=== PATIENT | male | born 1985 | race Caucasian/White ===

== ENCOUNTER 2017-07-16 20:12 | Emergency (ER) | payer BC ==
[2017-07-16] MEDS ORDERED: diphenhydrAMINE 50 MG/ML SDV IVPUSH ONE (20:39)
[2017-07-16] MEDS ORDERED: Sodium Chloride 0.9% 1,000 ML IV ONE (20:39)
[2017-07-16] MEDS ORDERED: Sodium Chloride 0.9% 2.5 ML Syringe FLUSH PRN (20:39)
[2017-07-16] MEDS ORDERED: LORazepam 2 MG/ML MDV IVPUSH ONE (20:39)
[2017-07-16] MEDS ORDERED: Prochlorperazine 10 MG/2 ML SDV IM ONE (20:39)
[2017-07-16] MEDS ORDERED: Sodium Chloride 0.9% 10 ML Syringe FLUSH PRN (20:39)
[2017-07-16] MEDS ORDERED: Ketorolac 30 MG/ML SDV IVPUSH ONE (20:39)
--- NOTE | 2017-07-16 20:39 | EDM.PDOC ---
ED HPI GENERAL MEDICAL PROBLEM - General Chief Complaint: Headache Stated Complaint: SEVER HEADACHES/CHILLS/FEVER Time Seen by Provider: 07/16/17 20:33 Source of Information: Reports: Patient History Limitations: Reports: No Limitations - History of Present Illness INITIAL COMMENTS - FREE TEXT/NARRATIVE: HISTORY AND PHYSICAL: [] 32-year-old male presents with migraine headache that has been lasting for the last 4 days History of Present Illness: [] Patient refused that Thursday 4 days ago he had a fever and vomiting headache has come and gone for the last 4 days now is over the entire frontal and extending down posterior to the occipital area. 2 days ago was behind his left eye Review of Systems: As per history of present illness and below otherwise all systems reviewed and negative. Past medical history: As per history of present illness and as reviewed below otherwise noncontributory. Surgical history: As per history of present illness and as reviewed below otherwise noncontributory. Social history: No reported history of drug or alcohol abuse. Family history: As per history of present illness and as reviewed below otherwise noncontributory. Physical exam: Alert and oriented gentleman who actually has tears running down his face sits with his eyes closed light doesn't hurt his eyes. He does answer questions in full sentences is not short of breath HEENT: Atraumatic, normocehpalic, pupils reactive, negative for conjunctival pallor or scleral icterus, mucous membranes moist, throat clear, neck supple, nontender, trachea midline. Lungs: Clear to auscultation, breath sounds equal bilaterally, chest non tender. Heart: S1S2, regular, negative for clicks, rubs, or JVD. Abdomen: Soft, nondistended, nontender. Negative for masses or hepatossplenmegaly. Negative for costovertebral tenderness. Pelvis: Stable nontender. Genitourinary: Deferred. Rectal: Deferred Extremities: Atraumatic, negative for cords or calf pain. Neurovascular unremarkable. Neuro: Awake, alert, oriented. Cranial nerves II through XII unremarkable. Cerebellum unremarkable. Motor and sensory unremarkable throughout. Exam nonfocal. he has improved greatly with treatment given Diagnostics: [] Therapeutics: [Normal saline Benadryl and Compazine Ativan Toradol Impression: [Migraine headache] Plan: []Discharged to home Sleep clinic at home off work 24 hours Follow up with your primary care provider Definitive disposition and diagnosis as appropriate pending reevaluation and review of above. headache Pain Score (Numeric/FACES): 7 - Related Data Allergies Allergy/AdvReac Type Severity Reaction Status Date / Time No Known Allergies Allergy Verified 07/16/17 20:26 Home Meds: Home Meds Insulin Aspart [NovoLOG] 0 unit SUBCUT ASDIRECTED 07/16/17 [History] Insulin Glargine,Hum.Rec.Anlog [Lantus Solostar] 35 unit SQ BID 07/16/17 [ History] ED ROS GENERAL - Review of Systems Review Of Systems: ROS reveals no pertinent complaints other than HPI. - Physical Exam Exam: See Below (See dictation) Course - Vital Signs Last Recorded V/S: Last Vital Signs Temp 36.7 C 07/16/17 20:28 Pulse 100 07/16/17 20:28 Resp 20 07/16/17 20:28 BP 143/86 H 07/16/17 20:28 Pulse Ox 100 07/16/17 20:28 - Orders/Labs/Meds Orders: Active Orders 24 hr Category Date Time Status Sodium Chloride 0.9% [Normal Saline] 1,000 ml Med 07/16/17 20:39 Active IV STAT Sodium Chloride 0.9% [Saline Flush] Med 07/16/17 20:39 Active 10 ml FLUSH ASDIRECTED PRN Sodium Chloride 0.9% [Saline Flush] Med 07/16/17 20:39 Active 2.5 ml FLUSH ASDIRECTED PRN Saline Lock Insert [OM.PC] Stat Oth 07/16/17 20:39 Ordered Medication Orders Sodium Chloride (Normal Saline) 1,000 mls @ 999 mls/hr IV STAT ONE Stop: 07/16/17 21:39 Sodium Chloride (Saline Flush) 10 ml FLUSH ASDIRECTED PRN PRN Reason: Keep Vein Open Sodium Chloride (Saline Flush) 2.5 ml FLUSH ASDIRECTED PRN PRN Reason: Keep Vein Open Meds: Medications Generic Name Dose Route Start Last Admin Trade Name Freq PRN Reason Stop Dose Admin Sodium Chloride 1,000 mls @ 999 mls/hr 07/16/17 20:39 Normal Saline IV 07/16/17 21:39 STAT ONE Sodium Chloride 10 ml 07/16/17 20:39 Saline Flush FLUSH ASDIRECTED PRN Keep Vein Open Sodium Chloride 2.5 ml 07/16/17 20:39 Saline Flush FLUSH ASDIRECTED PRN Keep Vein Open Discontinued Medications Generic Name Dose Route Start Last Admin Trade Name Owen PRN Reason Stop Dose Admin Diphenhydramine HCl 25 mg 07/16/17 20:39 07/16/17 20:48 Benadryl IVPUSH 07/16/17 20:40 25 mg ONETIME ONE Administration Ketorolac Tromethamine 30 mg 07/16/17 20:39 07/16/17 20:46 Toradol IVPUSH 07/16/17 20:40 30 mg ONETIME ONE Administration Lorazepam 1 mg 07/16/17 20:39 07/16/17 20:47 Ativan IVPUSH 07/16/17 20:40 1 mg ONETIME ONE Administration Prochlorperazine Edisylate 10 mg 07/16/17 20:39 07/16/17 20:47 Compazine IM 07/16/17 20:40 10 mg ONETIME ONE Administration Departure - Departure Time of Disposition: 21:30 Disposition: Home, Self-Care 01 Condition: Good Clinical Impression: Migraine - Discharge Information Instructions: Recurrent Migraine Headache, [id number] Referrals: PCP,None [Primary Care Provider] - Forms: ED Department Discharge Additional Instructions: The following information is given to patients seen in the emergency department who are being discharged to home. This information is to outline your options for follow-up care. We provide all patients seen in our emergency department with a follow-up referral. The need for follow-up, as well as the timing and circumstances, are variable depending upon the specifics of your emergency department visit. If you don't have a primary care physician on staff, we will provide you with a referral. We always advise you to contact your personal physician following an emergency department visit to inform them of the circumstance of the visit and for follow-up with them and/or the need for any referrals to a consulting specialist. The emergency department will also refer you to a specialist when appropriate. This referral assures that you have the opportunity for followup care with a specialist. All of these measure are taken in an effort to provide you with optimal care, which includes your followup. Under all circumstances we always encourage you to contact your private physician who remains a resource for coordinating your care. When calling for followup care, please make the office aware that this follow-up is from your recent emergency room visit. If for any reason you are refused follow-up, please contact the [facility] emergency department at and asked to speak to the emergency department charge nurse. Follow-up with your primary care provider Off work 24 hours go home and sleep - My Orders Last 24 Hours: My Active Orders 07/16/17 20:39 Sodium Chloride 0.9% [Normal Saline] 1,000 ml IV STAT Sodium Chloride 0.9% [Saline Flush] 10 ml FLUSH ASDIRECTED PRN Sodium Chloride 0.9% [Saline Flush] 2.5 ml FLUSH ASDIRECTED PRN Saline Lock Insert [OM.PC] Stat - Assessment/Plan Last 24 Hours: My Active Orders 07/16/17 20:39 Sodium Chloride 0.9% [Normal Saline] 1,000 ml IV STAT Sodium Chloride 0.9% [Saline Flush] 10 ml FLUSH ASDIRECTED PRN Sodium Chloride 0.9% [Saline Flush] 2.5 ml FLUSH ASDIRECTED PRN Saline Lock Insert [OM.PC] Stat
[2017-07-16 22:13] VITALS: BP 110/65
== END 2017-07-16 22:15 | disposition home or self-care (01) ==
LOC: MW.ED 20:12
DX: G43.909 Migraine, unspecified, not intractable, without status migrainosus (principal)
CPT/HCPCS: 96361; 96372; 96374; 96375; 99283; J0780; J1200; J1885; J2060; J7040; 99282

== ENCOUNTER 2019-11-30 06:56 | Day surgery (SDC) | payer BC ==
[~2019-11-30 06:56] MED LIST: Lactated Ringers 1,000 ML IV SCH
[2019-11-30] MEDS ORDERED: fentaNYL 100 MCG/2 ML SDV ONE (07:23)
[2019-11-30] MEDS ORDERED: Lidocaine 2% 5 ML SDV ONE (07:23)
[2019-11-30] MEDS ORDERED: Midazolam 1 MG/ML 2 ML SDV ONE (07:23)
[2019-11-30] MEDS ORDERED: Propofol 200 MG/20 ML SDV ONE (07:23)
--- NOTE | 2019-11-30 08:58 | PCM.PREANE ---
Preanesthetic Assessment - Anesthesia/Transfusion/Family Hx Anesthesia History: Prior Anesthesia Without Reaction Other Type of Anesthesia Reaction Comment: "it takes more local anesthesia for me than normal people" Family History of Anesthesia Reaction: No Transfusion History: No Prior Transfusion(s) - Review of Systems General: No Symptoms Pulmonary: No Symptoms Cardiovascular: No Symptoms Neurological: No Symptoms Other: Reports: None - Physical Assessment NPO Status Date: 11/29/19 NPO Status Time: 04:30 Vital Signs: Last Vital Signs Temp 97.5 F 11/30/19 07:22 Pulse 77 11/30/19 07:22 Resp 18 11/30/19 07:22 BP 105/81 11/30/19 07:22 Pulse Ox 97 11/30/19 07:22 Height: 5 ft 7 in Weight: 83.461 kg ASA Class: 3 Airway Class: Mallampati = 2 Dentition: Reports: Normal Dentition ROM/Head Extension: Full Lungs: Clear to Auscultation, Normal Respiratory Effort Cardiovascular: Regular Rate, Regular Rhythm - Allergies Allergies/Adverse Reactions: Allergies Allergy/AdvReac Type Severity Reaction Status Date / Time No Known Allergies Allergy Verified 11/24/19 10:31 - Blood Blood Available: No - Anesthesia Plan Pre-Op Medication Ordered: None - Acknowledgements Pt an Appropriate Candidate for the Planned Anesthesia: No Alternatives and Risks of Anesthesia Discussed w Pt/Guardian: Yes Pt/Guardian Understands and Agrees with Anesthesia Plan: Yes Additional Comments: PMH: dm type 1 x 10 years, on insulin pump, now turned off, arrival glucose=79, glucose wga=848, hld, htn, anx, bid cannabis use PLAN: tiva - note cannabis use will interfere with the ability of propofol to induce and/or maintain unconsciousness, may need higher dose, may need suplimentation with versed or ketamine PreAnesthesia Questionnaire HEENT History: Reports: Other (See Below) Other HEENT History: wears glasses, has dental implants Cardiovascular History: Reports: High Cholesterol Other Cardiovascular History: tales lisinopril to protect kidneys duet to diabetes Respiratory History: Reports: None Gastrointestinal History: Reports: Colon Polyp, GERD, Hepatitis Other Gastrointestinal History: hepatitis in the past-last test was negative Genitourinary History: Reports: None Musculoskeletal History: Reports: Back Pain, Chronic, Fracture Other Musculoskeletal History: states has had multiple fractures Neurological History: Reports: Concussion, Headaches, Chronic, Migraines, Neuropathy, Diabetic Psychiatric History: Reports: Anxiety, Depression Endocrine/Metabolic History: Reports: Diabetes, Type I Hematologic History: Reports: None Immunologic History: Reports: None Oncologic (Cancer) History: Reports: None Dermatologic History: Reports: None - Infectious Disease History Infectious Disease History: Reports: Chicken Pox, Hepatitis B, Shingles - Past Surgical History Head Surgeries/Procedures: Reports: None HEENT Surgical History: Reports: None Cardiovascular Surgical History: Reports: None Respiratory Surgical History: Reports: None GI Surgical History: Reports: Colonoscopy Male Surgical History: Reports: None Endocrine Surgical History: Reports: None Neurological Surgical History: Reports: None Musculoskeletal Surgical History: Reports: None Oncologic Surgical History: Reports: None Dermatological Surgical History: Reports: None - SUBSTANCE USE Smoking Status *Q: Never Smoker Recreational Drug Type: Reports: Marijuana/Hashish - HOME MEDS Home Medications: Home Meds ALPRAZolam [Alprazolam ER] 0.5 mg PO BID PRN 11/24/19 [History] Cannabidiol (Cbd) Extract [Cannabis (Medical)] 1 dose PO BID 11/24/19 [History] Cimetidine [Acid [facility]] 600 mg PO ASDIRECTED PRN 11/24/19 [History] Glucagon,Human Recombinant [Glucagon Emergency Kit] 1 injection SUBCUT ASDIRECTED PRN 11/24/19 [History] Insulin Aspart [NovoLOG] 1 injection SUBCUT ASDIRECTED 11/24/19 [History] atorvaSTATin Calcium [Atorvastatin Calcium] 10 mg PO DAILY 11/24/19 [History] lisinopriL [Lisinopril] 5 mg PO DAILY 11/24/19 [History] - CURRENT (IN HOUSE) MEDS Current Meds: Current Medications Lactated Ringer's (Ringers, Lactated) 1,000 mls @ 125 mls/hr IV ASDIRECTED MARILYN Last Admin: 11/30/19 07:39 Dose: 125 mls/hr Discontinued Medications Fentanyl (Sublimaze) Confirm Administered Dose 100 mcg .ROUTE .STK-MED ONE Stop: 11/30/19 07:24 Lidocaine (Xylocaine-Mpf 2%) Confirm Administered Dose 5 ml .ROUTE .STK-MED ONE Stop: 11/30/19 07:24 Midazolam HCl (Versed 1 Mg/Ml) Confirm Administered Dose 2 mg .ROUTE .STK-MED ONE Stop: 11/30/19 07:24 Propofol (Diprivan 20 Ml) Confirm Administered Dose 400 mg .ROUTE .STK-MED ONE Stop: 11/30/19 07:24
--- NOTE | 2019-11-30 09:50 | PCM.OPNOTE ---
- General Post-Op/Procedure Note Date of Surgery/Procedure: 11/30/19 Operative Procedure(s): egd w bx. colonoscopy w bx Findings: see [id number] Pre Op Diagnosis: change in bowel habits. gerd Post-Op Diagnosis: Same Anesthesia Technique: Moderate Sedation Primary Surgeon: Tello Fragoso Pathology: egd bx colon bx at 35 cm when enter for hyperemic Complications: None Condition: Good
[2019-11-30 10:06] VITALS: BP 105/61
[2019-11-30 10:16] VITALS: PULSE 76
--- NOTE | 2019-11-30 10:41 | PCM.POSTAN ---
POST ANESTHESIA ASSESSMENT - MENTAL STATUS Mental Status: Alert, Oriented - VITAL SIGNS Vital Signs: Last Vital Signs Temp 97.0 F 11/30/19 10:05 Pulse 76 11/30/19 10:05 Resp 16 11/30/19 10:05 BP 105/61 11/30/19 10:05 Pulse Ox 95 11/30/19 10:05 - RESPIRATORY Respiratory Status: Respiratory Rate WNL, Airway Patent, O2 Saturation Stable - CARDIOVASCULAR CV Status: Pulse Rate WNL, Blood Pressure Stable - GASTROINTESTINAL GI Status: No Symptoms - POST OP HYDRATION Hydration Status: Adequate & Stable
--- NOTE | 2019-11-30 10:41 | PCM48HPAN ---
Post Anesthesia Note - EVALUATION WITHIN 48HRS OF ANESTHETIC Vital Signs in Normal Range: Yes Patient Participated in Evaluation: Yes Respiratory Function Stable: Yes Airway Patent: Yes Cardiovascular Function Stable: Yes Hydration Status Stable: Yes Pain Control Satisfactory: Yes Nausea and Vomiting Control Satisfactory: Yes Mental Status Recovered: Yes Vital Signs: Last Vital Signs Temp 97.0 F 11/30/19 10:05 Pulse 76 11/30/19 10:05 Resp 16 11/30/19 10:05 BP 105/61 11/30/19 10:05 Pulse Ox 95 11/30/19 10:05
--- NOTE | 2019-11-30 10:54 | OR ---
SURGEON: Tello Fragoso MD DATE OF PROCEDURE: 11/30/2019 PREOPERATIVE DIAGNOSES: Bright red blood per rectum, change in bowel habit, and gastroesophageal reflux disease. POSTOPERATIVE DIAGNOSES: Esophagogastroduodenoscopy diagnosis is gastroesophageal reflux disease and colonoscopy diagnosis is internal hemorrhoids. PROCEDURES PERFORMED: Esophagogastroduodenoscopy with biopsy and colonoscopy with biopsy. DESCRIPTION OF PROCEDURE: EGD: The patient was taken to the endoscopy room, and with the [employer], Diprivan was administered. A well-lubricated EGD scope was gently inserted through the oropharynx, down the esophagus, passing through the gastroesophageal junction, into the stomach. The mucosa was examined upon the passage. Any etiology will be noted. Once in the stomach, we continued to advance to the distal antrum, passed through the pylorus into the second portion of the duodenum. Again, the mucosa was examined for any abnormality and etiology. The scope was then retrieved back to the stomach and then retroflexed to look at the fundus of the stomach. If a biopsy was indicated, we will biopsy the antrum, body, and gastroesophageal junction. The air will be sucked out while the scope is retrieved to reduce the patient's discomfort. The patient tolerated the procedure well. There were no intraoperative complications. Dr. Fragoso was present through the whole procedure. Prior to surgery, a time-out had been called, the patient identified, procedure identified and antibiotic administered. The patient was taken to the endoscopy room. A time out was called, patient identified, and procedure identified. Diprivan was then administrated. Patient went from awake to sleep, hearing doctor talking or door closing is normal. Perineum inspection and digital examination were then performed. A well- lubricated colonoscope was gently inserted through the rectum, advanced past the rectosigmoid junction, the descending colon, splenic flexure, transverse colon, hepatic flexure, ascending colon, arrived to the cecum. Cecum was identified as dictated in the finding. Then the scope was carefully withdrawn while attention was paid to the mucosal surface for any abnormality. Air will be sucked out during the scope withdrawal. At the rectum, retroflexed to examine any rectal diseases, fistula or hemorrhoids. During mucosal examination, abnormality or polyp was noted; picture taken and biopsy performed. Patient tolerated procedure well. There were no intraoperative complications, and Dr. Fragoso was present throughout the whole procedure. FINDINGS: EGD findings: 1. The patient is easily sedated with [employer] and Diprivan, the patient is soundly snoring. 2. Oropharynx and proximal esophagus are free of disease, stricture, inflammation, or varicosity. Distal esophagus at GE junction at 40 shows mild salmon-colored change, suggests a mild acid reflux. Stomach rugae are normal in appearance. Antrum is normal in appearance. Duodenum is grossly normal. Retroflexed look at the fundus of stomach, there is no hiatal hernia. Biopsy done at antrum, body, GE junction at 40, and sucked out the gas while scope pulling out. During the whole study, there is no bile, food particle, ulcer, or blood observed. There is a lot of water in the stomach. Colonoscopy findings: 1. The patient is easily sedated with [employer] and Diprivan, the patient is soundly snoring. 2. Bowel prep is average to [id number] and very little liquid stool and no semi-formed stool. 3. Colon is rather straightforward. Cecum indicated by ileocecal fold, one-to- one indentation, and appendiceal orifice. Light emittance is not observed and ScopeGuide was pointing south. Mucosa was then examined with some irrigation. The patient does not have diverticulosis, polyp, mass, growth, inflammation, stricture, ulceration, AV malformation. The patient is a little bit hyperemic at distance 35 cm when the scope go in, biopsy was done. The patient has mild internal hemorrhoids, no external hemorrhoids. The patient would benefit from repeat colonoscopy in 10 years from today or if clinically indicated otherwise. BLAISE / JOSSELIN /[id number]
== END 2019-11-30 10:40 | disposition home or self-care (01) ==
LOC: MW.SDS 06:56
PROVIDERS: ATTEND Surgery
DX: K62.5 Hemorrhage of anus and rectum (principal); R19.4 Change in bowel habit; K64.8 Other hemorrhoids; K21.0 Gastro-esophageal reflux disease with esophagitis; E10.65 Type 1 diabetes mellitus with hyperglycemia; E78.5 Hyperlipidemia, unspecified; Z91.19 Patient's noncompliance with other medical treatment and regimen; Z79.4 Long term (current) use of insulin; Z79.899 Other long term (current) drug therapy
CPT/HCPCS: 43239; 45380; 82962; 88305; 88312; J2001; J2250; J2704; J3010; J7120

== ENCOUNTER 2020-04-17 22:09 | Inpatient (IN) | payer BC, OTHER ==
[2020-04-17] MEDS ORDERED: Sodium Chloride 0.9% 1,000 ML IV SCH ×2 (22:45→23:30)
[2020-04-17] MEDS ORDERED: Ondansetron 4 MG/2 ML SDV IVPUSH ONE (22:50)
[2020-04-17 22:53] LABS: CARBON DIOXIDE,CO2 20.6 mmol/L (21.0-32.0); POTASSIUM,K 3.3 mmol/L (3.5-5.1)
[2020-04-17] MEDS ORDERED: Metoclopramide 10 MG/2 ML SDV ONE (22:55)
[2020-04-17] MEDS ORDERED: Metoclopramide 10 MG/2 ML SDV IVPUSH ONE (22:57)
--- NOTE | 2020-04-17 23:23 | EDM.PDOC ---
ED HPI GENERAL MEDICAL PROBLEM - General Chief Complaint: Gastrointestinal Problem Stated Complaint: DIABETIC KETOACIDOSIS Time Seen by Provider: 04/17/20 22:37 - History of Present Illness INITIAL COMMENTS - FREE TEXT/NARRATIVE: History of present illness: 34-year-old male presenting with nausea and vomiting and history of diabetes. Patient reports symptoms started today. Denies abdominal pain. Did have some mild diarrhea. Possible some mild cough but no fevers or body aches. Has no dysuria. He reports that his glucose at home was in the 600s and he has not been eating much at all for the last 2 days. He had been attempting to self treat at home by giving himself insulin doses, however his glucose had only improved from the 600s to the 300s. He has a prior history of DKA. Review of systems: As per history of present illness and below otherwise all systems reviewed and negative. Past medical history: As per history of present illness and as reviewed below otherwise noncontributory. Diabetes type 1 Surgical history: As per history of present illness and as reviewed below otherwise noncontributory. Social history: No reported history of drug or alcohol abuse. Family history: As per history of present illness and as reviewed below otherwise noncontributory. Physical exam: GEN: Mild distress, actively vomiting, otherwise well appearing HEENT: Atraumatic, normocephalic, mucous membranes dry Neck: supple, nontender, trachea midline. Lungs: No respiratory distress. Heart: RRR Abdomen: Soft, nondistended, nontender. Back: nontender Extremities: Atraumatic. Neurovascularly intact. Neuro: Awake, alert, oriented. Neuro Exam nonfocal. Skin: warm, dry, no lesions Diagnostics: [] Therapeutics: [] MDM: Impression: [] Plan: [] Definitive disposition and diagnosis as appropriate pending reevaluation and review of above. Abdomen Pain Score (Numeric/FACES): 3 - Related Data Allergies Allergy/AdvReac Type Severity Reaction Status Date / Time No Known Allergies Allergy Verified 04/17/20 22:31 Home Meds: Home Meds ALPRAZolam [Alprazolam ER] 0.5 mg PO BID PRN 11/24/19 [History] Cannabidiol (Cbd) Extract [Cannabis (Medical)] 1 dose PO BID 11/24/19 [History] Cimetidine [Acid Vocational Examiner] 600 mg PO ASDIRECTED PRN 11/24/19 [History] Glucagon,Human Recombinant [Glucagon Emergency Kit] 1 injection SUBCUT ASDIRECTED PRN 11/24/19 [History] Insulin Aspart [NovoLOG] 1 injection SUBCUT ASDIRECTED 11/24/19 [History] atorvaSTATin Calcium [Atorvastatin Calcium] 10 mg PO DAILY 11/24/19 [History] lisinopriL [Lisinopril] 5 mg PO DAILY 11/24/19 [History] Past Medical History HEENT History: Reports: Other (See Below) Other HEENT History: wears glasses, has dental implants Cardiovascular History: Reports: High Cholesterol Other Cardiovascular History: tales lisinopril to protect kidneys duet to diabetes Respiratory History: Reports: None Gastrointestinal History: Reports: Colon Polyp, GERD, Hepatitis Other Gastrointestinal History: hepatitis in the past-last test was negative Genitourinary History: Reports: None Musculoskeletal History: Reports: Back Pain, Chronic, Fracture Other Musculoskeletal History: states has had multiple fractures Neurological History: Reports: Concussion, Headaches, Chronic, Migraines, Neuropathy, Diabetic Psychiatric History: Reports: Anxiety, Depression Endocrine/Metabolic History: Reports: Diabetes, Type I Insulin Pump Model and Promotions Associate: not use for 2days Hematologic History: Reports: None Immunologic History: Reports: None Oncologic (Cancer) History: Reports: None Dermatologic History: Reports: None - Infectious Disease History Infectious Disease History: Reports: None - Past Surgical History Head Surgeries/Procedures: Reports: None HEENT Surgical History: Reports: None Cardiovascular Surgical History: Reports: None Respiratory Surgical History: Reports: None GI Surgical History: Reports: Colonoscopy Male Surgical History: Reports: None Endocrine Surgical History: Reports: None Neurological Surgical History: Reports: None Musculoskeletal Surgical History: Reports: None Oncologic Surgical History: Reports: None Dermatological Surgical History: Reports: None Social & Family History - Family History Family Medical History: Noncontributory - Tobacco Use Smoking Status *Q: Never Smoker - Caffeine Use Caffeine Use: Reports: None - Recreational Drug Use Recreational Drug Use: No ED ROS GENERAL - Review of Systems Review Of Systems: See Below (See dictation) ED EXAM, GI/ABD - Physical Exam Exam: See Below (See dictation) Course - Vital Signs Text/Narrative:: Patient with history of diabetes including diabetic ketoacidosis in the past. Nausea vomiting and diarrhea. No abdominal pain or tenderness. Labs with elevated white blood cell counts, however no other signs of infection including chest x-ray negative, UA negative, and eventually CT scan without any acute intra-abdominal findings or infection. Suspect white count elevation may be due to recurrent episodes of vomiting or possibly gastroenteritis. Creatinine also acutely elevated today. Patient given 2 L of normal saline for dehydration and also hypotensive. Anion gap initially 20, improved to 15 on repeat. Glucose initially in the 120s, however did trend upward on repeat draw. Therefore patient was started on insulin drip in association with D5 and potassium as his potassium was low. Repeat glucose in the 300s after being on insulin drip. Continue to have nausea and vomiting. Initially given Reglan, then given Zofran x2 doses. However vomiting/dry heaves continued. Given dose of Haldol with some improvement in his symptoms. We will admit to ICU as patient is on insulin drip. Last Recorded V/S: Last Vital Signs Temp 99.2 F 04/18/20 05:00 Pulse 86 04/18/20 04:00 Resp 18 04/18/20 05:00 BP 121/67 04/18/20 05:00 Pulse Ox 99 04/18/20 05:00 - Orders/Labs/Meds Orders: Active Orders 24 hr Category Date Time Status Dextrose 5%-0.9% NaCl with KCl [D5 NS with 20 mEq KCl] Med 04/18/20 01:15 Active 1,000 ml IV ASDIRECTED Insulin Regular, Human [NovoLIN R] 100 unit Med 04/18/20 02:45 Active Sodium Chloride 0.9% [Normal Saline] 99 ml IV TITRATE Sodium Chloride 0.9% [Normal Saline] 1,000 ml Med 04/17/20 22:45 Active IV ASDIRECTED Sodium Chloride 0.9% [Normal Saline] 1,000 ml Med 04/17/20 23:30 Active IV ASDIRECTED Medication Orders Sodium Chloride (Normal Saline) 1,000 mls @ 999 mls/hr IV ASDIRECTED MARILYN Last Admin: 04/17/20 22:58 Dose: 999 mls/hr Documented by: JESSICA Sodium Chloride (Normal Saline) 1,000 mls @ 999 mls/hr IV ASDIRECTED MARILYN Last Admin: 04/18/20 00:17 Dose: 999 mls/hr Documented by: JESSICA Potassium Chloride/Dextrose/Sod Cl (D5 Ns With 20 Meq Kcl) 1,000 mls @ 150 mls/hr IV ASDIRECTED MARILYN Last Admin: 04/18/20 01:38 Dose: 150 mls/hr Documented by: JESSICA Insulin Human Regular 100 unit (/ Sodium Chloride) 100 mls @ 8 mls/hr IV TITRATE MARILYN; Protocol Last Titration: 04/18/20 05:06 Dose: 6 unit/hr, 6 mls/hr Documented by: SIMONE Cosigned by: STANLEY Admin: 04/18/20 03:10 Dose: 8 unit/hr, 8 mls/hr Documented by: JESSICA Cosigned by: [facility] Labs: Laboratory Tests 04/17/20 04/17/20 04/17/20 Range/Units 22:25 22:35 22:35 WBC 22.08 H (4.0-11.0) K/uL RBC 5.94 H (4.50-5.90) M/uL Hgb 17.8 H (13.0-17.0) g/dL Hct 50.2 H (38.0-50.0) % MCV 84.5 (80.0-98.0) fL MCH 30.0 (27.0-32.0) pg MCHC 35.5 (31.0-37.0) g/dL RDW Std Deviation 39.0 (28.0-62.0) fl RDW Coeff of Bryce 13 (11.0-15.0) % Plt Count 336 (150-400) K/uL MPV 10.30 (7.40-12.00) fL Neut % (Auto) 90.2 H (48.0-80.0) % Lymph % (Auto) 6.0 L (16.0-40.0) % Briscoe % (Auto) 3.8 (0.0-15.0) % Eos % (Auto) 0.0 (0.0-7.0) % Baso % (Auto) 0.0 (0.0-1.5) % Neut # (Auto) 19.9 H (1.4-5.7) K/uL Lymph # (Auto) 1.3 (0.6-2.4) K/uL Briscoe # (Auto) 0.8 (0.0-0.8) K/uL Eos # (Auto) 0.0 (0.0-0.7) K/uL Baso # (Auto) 0.0 (0.0-0.1) K/uL Nucleated RBC % 0.0 /100WBC Nucleated RBCs # 0 K/uL VBG pH 7.49 H (7.31-7.41) VBG pCO2 26 L (35-45) mmHG VBG pO2 32 (30-40) mmHG VBG HCO3 20 L (22-30) mEq/L VBG Total CO2 17 L (41-51) mmol/L VBG Base Excess -1.6 (-3.0-3.0) Sodium (136-148) mmol/L Potassium (3.5-5.1) mmol/L Chloride (98-107) mmol/L Carbon Dioxide (21.0-32.0) mmol/L BUN (7.0-18.0) mg/dL Creatinine (0.8-1.3) mg/dL Est Cr Clr Drug Dosing mL/min Estimated GFR (MDRD) ml/min Glucose (74-106) mg/dL POC Glucose 115 H (60-110) mg/dL Calcium (8.5-10.1) mg/dL Total Bilirubin (0.2-1.0) mg/dL AST (15-37) IU/L ALT (14-63) IU/L Alkaline Phosphatase (46-116) U/L Total Protein (6.4-8.2) g/dL Albumin (3.4-5.0) g/dL Globulin (2.6-4.0) g/dL Albumin/Globulin Ratio (0.9-1.6) Urine Color Urine Appearance Urine pH (5.0-8.0) Ur Specific Roby (1.001-1.035) Urine Protein (NEGATIVE) mg/dL Urine Glucose (UA) (NEGATIVE) mg/dL Urine Ketones (NEGATIVE) mg/dL Urine Occult Blood (NEGATIVE) Urine Nitrite (NEGATIVE) Urine Bilirubin (NEGATIVE) Urine Urobilinogen (<2.0) EU/dL Ur Leukocyte Esterase (NEGATIVE) Ketones (NEG) 04/17/20 04/17/20 04/18/20 Range/Units 22:35 22:35 00:00 WBC (4.0-11.0) K/uL RBC (4.50-5.90) M/uL Hgb (13.0-17.0) g/dL Hct (38.0-50.0) % MCV (80.0-98.0) fL MCH (27.0-32.0) pg MCHC (31.0-37.0) g/dL RDW Std Deviation (28.0-62.0) fl RDW Coeff of Bryce (11.0-15.0) % Plt Count (150-400) K/uL MPV (7.40-12.00) fL Neut % (Auto) (48.0-80.0) % Lymph % (Auto) (16.0-40.0) % Briscoe % (Auto) (0.0-15.0) % Eos % (Auto) (0.0-7.0) % Baso % (Auto) (0.0-1.5) % Neut # (Auto) (1.4-5.7) K/uL Lymph # (Auto) (0.6-2.4) K/uL Briscoe # (Auto) (0.0-0.8) K/uL Eos # (Auto) (0.0-0.7) K/uL Baso # (Auto) (0.0-0.1) K/uL Nucleated RBC % /100WBC Nucleated RBCs # K/uL VBG pH (7.31-7.41) VBG pCO2 (35-45) mmHG VBG pO2 (30-40) mmHG VBG HCO3 (22-30) mEq/L VBG Total CO2 (41-51) mmol/L VBG Base Excess (-3.0-3.0) Sodium 144 (136-148) mmol/L Potassium 3.3 L (3.5-5.1) mmol/L Chloride 103 (98-107) mmol/L Carbon Dioxide 20.6 L (21.0-32.0) mmol/L BUN 28 H (7.0-18.0) mg/dL Creatinine 2.0 H (0.8-1.3) mg/dL Est Cr Clr Drug Dosing 49.12 mL/min Estimated GFR (MDRD) 38.7 ml/min Glucose 127 H (74-106) mg/dL POC Glucose (60-110) mg/dL Calcium 10.4 H (8.5-10.1) mg/dL Total Bilirubin 1.2 H (0.2-1.0) mg/dL AST 27 (15-37) IU/L ALT 42 (14-63) IU/L Alkaline Phosphatase 104 (46-116) U/L Total Protein 9.3 H (6.4-8.2) g/dL Albumin 5.3 H (3.4-5.0) g/dL Globulin 4.0 (2.6-4.0) g/dL Albumin/Globulin Ratio 1.3 (0.9-1.6) Urine Color YELLOW Urine Appearance CLEAR Urine pH 6.0 (5.0-8.0) Ur Specific Roby 1.025 (1.001-1.035) Urine Protein NEGATIVE (NEGATIVE) mg/dL Urine Glucose (UA) 500 H (NEGATIVE) mg/dL Urine Ketones >=80 (NEGATIVE) mg/dL Urine Occult Blood NEGATIVE (NEGATIVE) Urine Nitrite NEGATIVE (NEGATIVE) Urine Bilirubin NEGATIVE (NEGATIVE) Urine Urobilinogen 0.2 (<2.0) EU/dL Ur Leukocyte Esterase NEGATIVE (NEGATIVE) Ketones NEGATIVE (NEG) 04/18/20 04/18/20 Range/Units 01:38 02:56 WBC (4.0-11.0) K/uL RBC (4.50-5.90) M/uL Hgb (13.0-17.0) g/dL Hct (38.0-50.0) % MCV (80.0-98.0) fL MCH (27.0-32.0) pg MCHC (31.0-37.0) g/dL RDW Std Deviation (28.0-62.0) fl RDW Coeff of Bryce (11.0-15.0) % Plt Count (150-400) K/uL MPV (7.40-12.00) fL Neut % (Auto) (48.0-80.0) % Lymph % (Auto) (16.0-40.0) % Briscoe % (Auto) (0.0-15.0) % Eos % (Auto) (0.0-7.0) % Baso % (Auto) (0.0-1.5) % Neut # (Auto) (1.4-5.7) K/uL Lymph # (Auto) (0.6-2.4) K/uL Briscoe # (Auto) (0.0-0.8) K/uL Eos # (Auto) (0.0-0.7) K/uL Baso # (Auto) (0.0-0.1) K/uL Nucleated RBC % /100WBC Nucleated RBCs # K/uL VBG pH (7.31-7.41) VBG pCO2 (35-45) mmHG VBG pO2 (30-40) mmHG VBG HCO3 (22-30) mEq/L VBG Total CO2 (41-51) mmol/L VBG Base Excess (-3.0-3.0) Sodium 144 (136-148) mmol/L Potassium 3.9 (3.5-5.1) mmol/L Chloride 107 (98-107) mmol/L Carbon Dioxide 21.7 (21.0-32.0) mmol/L BUN 29 H (7.0-18.0) mg/dL Creatinine 1.6 H (0.8-1.3) mg/dL Est Cr Clr Drug Dosing 61.39 mL/min Estimated GFR (MDRD) 50.0 ml/min Glucose 224 H (74-106) mg/dL POC Glucose 420 H (60-110) mg/dL Calcium 8.6 (8.5-10.1) mg/dL Total Bilirubin (0.2-1.0) mg/dL AST (15-37) IU/L ALT (14-63) IU/L Alkaline Phosphatase (46-116) U/L Total Protein (6.4-8.2) g/dL Albumin (3.4-5.0) g/dL Globulin (2.6-4.0) g/dL Albumin/Globulin Ratio (0.9-1.6) Urine Color Urine Appearance Urine pH (5.0-8.0) Ur Specific Roby (1.001-1.035) Urine Protein (NEGATIVE) mg/dL Urine Glucose (UA) (NEGATIVE) mg/dL Urine Ketones (NEGATIVE) mg/dL Urine Occult Blood (NEGATIVE) Urine Nitrite (NEGATIVE) Urine Bilirubin (NEGATIVE) Urine Urobilinogen (<2.0) EU/dL Ur Leukocyte Esterase (NEGATIVE) Ketones (NEG) Meds: Medications Generic Name Dose Route Start Last Admin Trade Name Freq PRN Reason Stop Dose Admin Sodium Chloride 1,000 mls @ 999 mls/hr 04/17/20 22:45 04/17/20 22:58 Normal Saline IV 999 mls/hr ASDIRECTED MARILYN Administration Sodium Chloride 1,000 mls @ 999 mls/hr 04/17/20 23:30 04/18/20 00:17 Normal Saline IV 999 mls/hr ASDIRECTED MARILYN Administration Potassium Chloride/Dextrose/Sod Cl 1,000 mls @ 150 mls/hr 04/18/20 01:15 04/18/20 01:38 D5 Ns With 20 Meq Kcl IV 150 mls/hr ASDIRECTED MARILYN Administration Insulin Human Regular 100 unit 100 mls @ 8 mls/hr 04/18/20 02:45 04/18/20 05:06 / Sodium Chloride IV 6 unit/hr TITRATE MARILYN 6 mls/hr Titration Protocol 8 UNIT/HR Discontinued Medications Generic Name Dose Route Start Last Admin Trade Name Freq PRN Reason Stop Dose Admin Haloperidol Lactate 5 mg 04/18/20 04:41 04/18/20 04:42 Haldol IM 04/18/20 04:42 5 mg ONETIME ONE Administration Haloperidol Lactate Confirm 04/18/20 04:40 04/18/20 05:07 Haldol Administered 04/18/20 04:41 Not Given Dose 5 mg .ROUTE .STK-MED ONE Metoclopramide HCl 10 mg 04/17/20 22:57 04/17/20 22:58 Reglan IVPUSH 04/17/20 22:58 10 mg ONETIME ONE Administration Metoclopramide HCl Confirm 04/17/20 22:55 04/17/20 22:59 Reglan Administered 04/17/20 22:56 Not Given Dose 10 mg .ROUTE .STK-MED ONE Ondansetron HCl 4 mg 04/17/20 22:50 04/17/20 23:00 Zofran IVPUSH 04/17/20 22:51 Not Given ONETIME ONE Ondansetron HCl 4 mg 04/18/20 01:31 04/18/20 01:37 Zofran IVPUSH 04/18/20 01:32 4 mg ONETIME ONE Administration Ondansetron HCl 4 mg 04/18/20 02:11 04/18/20 02:25 Zofran IVPUSH 04/18/20 02:12 4 mg ONETIME ONE Administration Potassium Chloride 40 meq 04/18/20 01:10 04/18/20 01:21 Potassium Chloride PO 04/18/20 01:11 40 meq ONETIME ONE Administration - Re-Assessments/Exams Free Text/Narrative Re-Assessment/Exam: 04/17/20 23:23 On reassessment the patient is feeling better. He is sleeping comfortably. Upon awakening he reports he has no pain in his feeling improved, no further nausea or vomiting. Discussed labs including elevated white count and recommendation for further infectious work-up including chest x-ray and UA. Patient agrees with this plan. 04/18/20 01:30 Patient not feeling well. Vomiting after having received the p.o. potassium. Zofran ordered. 04/18/20 02:12 Patient reassessed. He has received the Zofran and still nauseated/vomiting and heaving. Will order additional Zofran. Denies any abdominal pain or change in symptoms other than nausea and vomiting. 04/18/20 04:06 Patient vomiting again after he had been previously feeling better and wanting to attempt p.o. challenge after CT scan resulted as negative for any acute intra-abdominal process. Dr. Boone also called back to admit the patient. Request to admit to ICU under inpatient status. Departure - Departure Time of Disposition: 03:45 Disposition: Admitted As Inpatient 67 Clinical Impression: Acute renal insufficiency, Dehydration, Nausea vomiting and diarrhea DKA (diabetic ketoacidoses) Qualifiers: Diabetes mellitus type: type 1 Diabetes mellitus complication detail: without coma Qualified Code(s): E10.10 - Type 1 diabetes mellitus with ketoacidosis without coma - Discharge Information Critical Care Note - Critical Care Note Total Time (mins): 35 Comments: Frequent and multiple re-evaluations, multiple doses of medications and insulin drip for DKA Sepsis Event Note (ED) - Evaluation Sepsis Screening Result: No Definite Risk - Focused Exam Vital Signs: Vital Signs Temp Pulse Resp BP Pulse Ox 04/18/20 04:00 86 18 128/85 98 04/18/20 02:15 99 F 90 18 121/73 97 04/18/20 00:17 82 18 128/74 98 04/17/20 22:31 96.4 F L 110 H 20 116/70 98 - My Orders Last 24 Hours: My Active Orders 04/17/20 22:45 Sodium Chloride 0.9% [Normal Saline] 1,000 ml IV ASDIRECTED 04/17/20 23:30 Sodium Chloride 0.9% [Normal Saline] 1,000 ml IV ASDIRECTED 04/18/20 01:15 Dextrose 5%-0.9% NaCl with KCl [D5 NS with 20 mEq KCl] 1,000 ml IV ASDIRECTED 04/18/20 02:45 Insulin Regular, Human [NovoLIN R] 100 unit Sodium Chloride 0.9% [Normal Saline] 99 ml IV TITRATE - Assessment/Plan Last 24 Hours: My Active Orders 04/17/20 22:45 Sodium Chloride 0.9% [Normal Saline] 1,000 ml IV ASDIRECTED 04/17/20 23:30 Sodium Chloride 0.9% [Normal Saline] 1,000 ml IV ASDIRECTED 04/18/20 01:15 Dextrose 5%-0.9% NaCl with KCl [D5 NS with 20 mEq KCl] 1,000 ml IV ASDIRECTED 04/18/20 02:45 Insulin Regular, Human [NovoLIN R] 100 unit Sodium Chloride 0.9% [Normal Saline] 99 ml IV TITRATE
--- NOTE | 2020-04-18 00:32 | CR ---
INDICATION: Cough, diabetic ketoacidosis TECHNIQUE: Chest radiograph 2 views COMPARISON: None FINDINGS: Mediastinum: The mediastinum is normal in appearance. The heart silhouette is normal in size and morphology. Lung: Both lungs are unremarkable in appearance. No sign of pleural effusion seen. No pneumothorax is identified. Bone and Soft tissue: Unremarkable for age. IMPRESSION: 1. No acute cardiopulmonary disease is seen. Dictated by: Larry Moya MD @ 04/18/2020 00:31:08 (Electronically Signed)
[2020-04-18] MEDS ORDERED: Potassium Chloride 10% 20 MEQ/15 ML Soln 30 ML UD Cup PO ONE (01:10)
[2020-04-18] MEDS ORDERED: Ondansetron 4 MG/2 ML SDV IVPUSH ONE ×3 (01:31→15:06)
[2020-04-18] MEDS: Dextrose 5%-0.9% NaCl with KCl 1,000 ML IV SCH ×4 (01:38→22:32)
[2020-04-18 01:59] LABS: CARBON DIOXIDE,CO2 21.7 mmol/L (21.0-32.0); POTASSIUM,K 3.9 mmol/L (3.5-5.1)
--- NOTE | 2020-04-18 03:28 | CT ---
INDICATION: Nausea and vomiting. Diabetic ketoacidosis. TECHNIQUE: Axial images were obtained from the diaphragm to the pubic symphysis. Reformats were obtained in the coronal and sagittal plane. IV Contrast: None Oral Contrast: None COMPARISON: None. FINDINGS: Lower chest: Unremarkable. Liver: Unremarkable. Normal in size and attenuation. No masses. Gallbladder and bile ducts: Unremarkable. No stones or inflammation. No biliary dilatation. Spleen: Unremarkable. Normal in size without mass. Pancreas: Unremarkable. No mass or inflammation. Adrenal glands: Unremarkable. No nodules. Kidneys: Unremarkable. No masses, stones, or hydronephrosis. Vasculature: Unremarkable. GI tract: The stomach is unremarkable. No dilated loops of large or small intestine. Stone noted within the appendiceal lumen, however the appendix is normal in caliber without adjacent inflammation. Pelvis: Bladder unremarkable. Minimal calcification margin left seminal vesicle. Bones: Unremarkable for age. IMPRESSION: Unremarkable abdomen and pelvis CT. No dilated bowel or localized inflammation. Please note that all CT scans at this facility use dose modulation, iterative reconstruction, and/or weight-based dosing when appropriate to reduce radiation dose to as low as reasonably achievable. Dictated by Alexsander Naik MD @ Apr 18 2020 3:23AM Signed by Dr. Alexsander Naik @ Apr 18 2020 3:28AM
[2020-04-18 04:05] VITALS: PULSE 86
[2020-04-18] MEDS ORDERED: Haloperidol Lactate 5 MG/ML SDV ONE (04:40)
[2020-04-18] MEDS ORDERED: Haloperidol Lactate 5 MG/ML SDV IM ONE (04:41)
[2020-04-18 06:04] LABS: CARBON DIOXIDE,CO2 19.1 mmol/L (21.0-32.0); POTASSIUM,K 3.6 mmol/L (3.5-5.1)
[2020-04-18] MEDS ORDERED: Sodium Chloride 0.9% 10 ML SDV IV ONE (06:16)
--- NOTE | 2020-04-18 06:21 | PN ---
THC Physician - Brief Progress [id number]/24/2020 06:04[facility] Bill Muniz, [place] - ESTELA (EMIR) - ESTELA FRENCHKRISTOFERPhilipDate of Service 04/18/2020 06:04HPI/Events of Note Chart reviewed. On camera, the patient is asleep in bed, in NAD. Mr Rogers is a 34 year old man presenting with N/V x 1 day. Mild diarrhea, mild cough, no dysuria. No fever or bodyaches. Glucos e at home 300-600. In ED, on Insulin gtt Glucose level was 300. He rec'd 2L of NS.PMH: DM 1 with prio r episodes of DKA, HLD, GERD, hepatitis, chronic OLIVAS, anxiety and depression.Investigations reviewed - pertinent: K 3.3, replaced, BUN 28 - 26, Cre 2.0 - 1.7Gluc 127, bicarb 20 - 19, AG 20-17UA not sug gestive of infectionWBC 22k liVBG 7.49//32/20kely reactiveCxR: ANDREW/ECT abd/pelvis: no acute finding s.A/P:1. DKA, DM type 1- bolused anohter 500 mL due to borderline hypotension.- Insulin drip per prot ocol- check electrolytes and replace prn.2 .ORTEGA- hydrate (may need further fluid boluses)- hold BOY-i nhibitor until Cre back to baseline.3. GI/DVT prophylaxis- Pepcid IV (convert to po when patient able to take) - for GERD, patient takes Cimetidine at home.- SCDs and ambulate at least 500 feet tid.Inte rventions Major-Other: DKA, AKI
[2020-04-18] MEDS ORDERED: Sodium Chloride 0.9% 1,000 ML IV ONE (06:30)
[2020-04-18] MEDS ORDERED: Alum Hydrox/Mag Hydrox/Simeth 15 ML, Lidocaine 2% 5 ML PO ONE ×4 (06:31→07:15)
--- NOTE | 2020-04-18 06:37 | PCM.HP.2 ---
H&P History of Present Illness - General Date of Service: 04/18/20 Admit Problem/Dx: Admission Diagnosis/Problem Admission Diagnosis/Problem Diabetic ketoacidosis - History of Present Illness Initial Comments - Free Text/Narative: 34 yo male with pmh of type 1 DM who for the past month his insulin pump has not been working. He has been giving himself boluses of insulin at home to control his blood sugars. He reports one day history of nausea and vomiting. He reports he has not been able to keep anything down for 24 hours. He has vomited over 20 times. He reports stomach pain but that has improved. He denies any blood in stool or vomit. He denies any fevers, cough or shortness of breath. He reports his blood glucoses at home recently have been undetectably high. He has [place] on a road trip and when he arrived home he went straight to the ED. In the ED he received IV fluids and was started on an insulin drip. CT abdomen was unremarkable. Patient reports chronic nausea and has been taking cannabis for nausea and headaches. On his road trip he did not take any cannabis before this episode of nausea and vomiting. Abdomen Pain Score (Numeric/FACES): 3 - Related Data Allergies/Adverse Reactions: Allergies Allergy/AdvReac Type Severity Reaction Status Date / Time No Known Allergies Allergy Verified 04/18/20 07:20 Home Medications: Home Meds ALPRAZolam [Alprazolam ER] 0.5 mg PO BID PRN 11/24/19 [History] Cannabidiol (Cbd) Extract [Cannabis (Medical)] 1 dose PO BID 11/24/19 [History] Cimetidine [Acid Labeling Associate] 600 mg PO ASDIRECTED PRN 11/24/19 [History] Glucagon,Human Recombinant [Glucagon Emergency Kit] 1 injection SUBCUT ASDIRECTED PRN 11/24/19 [History] Insulin Aspart [NovoLOG] 1 injection SUBCUT ASDIRECTED 11/24/19 [History] atorvaSTATin Calcium [Atorvastatin Calcium] 10 mg PO DAILY 11/24/19 [History] lisinopriL [Lisinopril] 5 mg PO DAILY 11/24/19 [History] Ondansetron [Zofran Odt] 8 mg PO Q6H PRN #20 tab.rapdis 04/19/20 [Rx] Past Medical History HEENT History: Reports: Other (See Below) Other HEENT History: wears glasses, has dental implants Cardiovascular History: Reports: High Cholesterol Other Cardiovascular History: tales lisinopril to protect kidneys duet to diabetes Respiratory History: Reports: None Gastrointestinal History: Reports: Colon Polyp, GERD, Hepatitis Other Gastrointestinal History: hepatitis in the past-last test was negative Genitourinary History: Reports: None Musculoskeletal History: Reports: Back Pain, Chronic, Fracture Other Musculoskeletal History: states has had multiple fractures Neurological History: Reports: Concussion, Headaches, Chronic, Migraines, Neuropathy, Diabetic Psychiatric History: Reports: Anxiety, Depression Endocrine/Metabolic History: Reports: Diabetes, Type I Insulin 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 Hematologic History: Reports: None Immunologic History: Reports: None Oncologic (Cancer) History: Reports: None Dermatologic History: Reports: None - Infectious Disease History Infectious Disease History: Reports: None - Past Surgical History Head Surgeries/Procedures: Reports: None HEENT Surgical History: Reports: None Cardiovascular Surgical History: Reports: None Respiratory Surgical History: Reports: None GI Surgical History: Reports: Colonoscopy Male Surgical History: Reports: None Endocrine Surgical History: Reports: None Neurological Surgical History: Reports: None Musculoskeletal Surgical History: Reports: None Oncologic Surgical History: Reports: None Dermatological Surgical History: Reports: None Social & Family History - Family History Family Medical History: Noncontributory - Tobacco Use Smoking Status *Q: Never Smoker - Caffeine Use Caffeine Use: Reports: None - Recreational Drug Use Recreational Drug Use: No H&P Review of Systems - Review of Systems: Review Of Systems: Comprehensive ROS is negative, except as noted in HPI. Exam - Exam Exam: See Below - Vital Signs Vital Signs: Last Vital Signs Temp 37.3 C 04/18/20 05:00 Pulse 86 04/18/20 04:00 Resp 19 04/18/20 06:00 BP 96/48 L 04/18/20 06:00 Pulse Ox 94 L 04/18/20 06:00 Weight: 81.647 kg - Exam General: Alert, Oriented HEENT: Mucosa Moist & [place] Lungs: Clear to Auscultation, Normal Respiratory Effort Cardiovascular: Regular Rate, Regular Rhythm GI/Abdominal Exam: Normal Bowel Sounds, Soft, Non-Tender Extremities: Non-Tender, No Pedal Edema Skin: Warm, Dry, Intact - Patient Data Lab Results Last 24 hrs: Laboratory Results - last 24 hr 04/17/20 04/17/20 04/17/20 Range/Units 22:25 22:35 22:35 WBC 22.08 H (4.0-11.0) K/uL RBC 5.94 H (4.50-5.90) M/uL Hgb 17.8 H (13.0-17.0) g/dL Hct 50.2 H (38.0-50.0) % MCV 84.5 (80.0-98.0) fL MCH 30.0 (27.0-32.0) pg MCHC 35.5 (31.0-37.0) g/dL RDW Std Deviation 39.0 (28.0-62.0) fl RDW Coeff of Bry[place] 13 (11.0-15.0) % Plt Count 336 (150-400) K/uL MPV 10.30 (7.40-12.00) fL Neut % (Auto) 90.2 H (48.0-80.0) % Lymph % (Auto) 6.0 L (16.0-40.0) % [place] % (Auto) 3.8 (0.0-15.0) % Eos % (Auto) 0.0 (0.0-7.0) % Baso % (Auto) 0.0 (0.0-1.5) % Neut # (Auto) 19.9 H (1.4-5.7) K/uL Lymph # (Auto) 1.3 (0.6-2.4) K/uL [place] # (Auto) 0.8 (0.0-0.8) K/uL Eos # (Auto) 0.0 (0.0-0.7) K/uL Baso # (Auto) 0.0 (0.0-0.1) K/uL Nucleated RBC % 0.0 /100WBC Nucleated RBCs # 0 K/uL VBG pH 7.49 H (7.31-7.41) VBG pCO2 26 L (35-45) mmHG VBG pO2 32 (30-40) mmHG VBG HCO3 20 L (22-30) mEq/L VBG Total CO2 17 L (41-51) mmol/L VBG Base Excess -1.6 (-3.0-3.0) Sodium (136-148) mmol/L Potassium (3.5-5.1) mmol/L Chloride (98-107) mmol/L Carbon Dioxide (21.0-32.0) mmol/L BUN (7.0-18.0) mg/dL Creatinine (0.8-1.3) mg/dL Est Cr Clr Drug Dosing mL/min Estimated GFR (MDRD) ml/min Glucose (74-106) mg/dL POC Glucose 115 H (60-110) mg/dL Calcium (8.5-10.1) mg/dL Total Bilirubin (0.2-1.0) mg/dL AST (15-37) IU/L ALT (14-63) IU/L Alkaline Phosphatase (46-116) U/L Total Protein (6.4-8.2) g/dL Albumin (3.4-5.0) g/dL Globulin (2.6-4.0) g/dL Albumin/Globulin Ratio (0.9-1.6) Urine Color Urine Appearance Urine pH (5.0-8.0) Ur Specific [place] (1.001-1.035) Urine Protein (NEGATIVE) mg/dL Urine Glucose (UA) (NEGATIVE) mg/dL Urine Ketones (NEGATIVE) mg/dL Urine Occult Blood (NEGATIVE) Urine Nitrite (NEGATIVE) Urine Bilirubin (NEGATIVE) Urine Urobilinogen (<2.0) EU/dL Ur Leukocyte Esterase (NEGATIVE) Ketones (NEG) 04/17/20 04/17/20 04/18/20 Range/Units 22:35 22:35 00:00 WBC (4.0-11.0) K/uL RBC (4.50-5.90) M/uL Hgb (13.0-17.0) g/dL Hct (38.0-50.0) % MCV (80.0-98.0) fL MCH (27.0-32.0) pg MCHC (31.0-37.0) g/dL RDW Std Deviation (28.0-62.0) fl RDW Coeff of [place]ce (11.0-15.0) % Plt Count (150-400) K/uL MPV (7.40-12.00) fL Neut % (Auto) (48.0-80.0) % Lymph % (Auto) (16.0-40.0) % [place] % (Auto) (0.0-15.0) % Eos % (Auto) (0.0-7.0) % Baso % (Auto) (0.0-1.5) % Neut # (Auto) (1.4-5.7) K/uL Lymph # (Auto) (0.6-2.4) K/uL [place] # (Auto) (0.0-0.8) K/uL Eos # (Auto) (0.0-0.7) K/uL Baso # (Auto) (0.0-0.1) K/uL Nucleated RBC % /100WBC Nucleated RBCs # K/uL VBG pH (7.31-7.41) VBG pCO2 (35-45) mmHG VBG pO2 (30-40) mmHG VBG HCO3 (22-30) mEq/L VBG Total CO2 (41-51) mmol/L VBG Base Excess (-3.0-3.0) Sodium 144 (136-148) mmol/L Potassium 3.3 L (3.5-5.1) mmol/L Chloride 103 (98-107) mmol/L Carbon Dioxide 20.6 L (21.0-32.0) mmol/L BUN 28 H (7.0-18.0) mg/dL Creatinine 2.0 H (0.8-1.3) mg/dL Est Cr Clr Drug Dosing 49.12 mL/min Estimated GFR (MDRD) 38.7 ml/min Glucose 127 H (74-106) mg/dL POC Glucose (60-110) mg/dL Calcium 10.4 H (8.5-10.1) mg/dL Total Bilirubin 1.2 H (0.2-1.0) mg/dL AST 27 (15-37) IU/L ALT 42 (14-63) IU/L Alkaline Phosphatase 104 (46-116) U/L Total Protein 9.3 H (6.4-8.2) g/dL Albumin 5.3 H (3.4-5.0) g/dL Globulin 4.0 (2.6-4.0) g/dL Albumin/Globulin Ratio 1.3 (0.9-1.6) Urine Color YELLOW Urine Appearance CLEAR Urine pH 6.0 (5.0-8.0) Ur Specific [place] 1.025 (1.001-1.035) Urine Protein NEGATIVE (NEGATIVE) mg/dL Urine Glucose (UA) 500 H (NEGATIVE) mg/dL Urine Ketones >=80 (NEGATIVE) mg/dL Urine Occult Blood NEGATIVE (NEGATIVE) Urine Nitrite NEGATIVE (NEGATIVE) Urine Bilirubin NEGATIVE (NEGATIVE) Urine Urobilinogen 0.2 (<2.0) EU/dL Ur Leukocyte Esterase NEGATIVE (NEGATIVE) Ketones NEGATIVE (NEG) 04/18/20 04/18/20 04/18/20 Range/Units 01:38 02:56 04:20 WBC (4.0-11.0) K/uL RBC (4.50-5.90) M/uL Hgb (13.0-17.0) g/dL Hct (38.0-50.0) % MCV (80.0-98.0) fL MCH (27.0-32.0) pg MCHC (31.0-37.0) g/dL RDW Std Deviation (28.0-62.0) fl RDW Coeff of [place] (11.0-15.0) % Plt Count (150-400) K/uL MPV (7.40-12.00) fL Neut % (Auto) (48.0-80.0) % Lymph % (Auto) (16.0-40.0) % [place] % (Auto) (0.0-15.0) % Eos % (Auto) (0.0-7.0) % Baso % (Auto) (0.0-1.5) % Neut # (Auto) (1.4-5.7) K/uL Lymph # (Auto) (0.6-2.4) K/uL [place] # (Auto) (0.0-0.8) K/uL Eos # (Auto) (0.0-0.7) K/uL Baso # (Auto) (0.0-0.1) K/uL Nucleated RBC % /100WBC Nucleated RBCs # K/uL VBG pH (7.31-7.41) VBG pCO2 (35-45) mmHG VBG pO2 (30-40) mmHG VBG HCO3 (22-30) mEq/L VBG Total CO2 (41-51) mmol/L VBG Base Excess (-3.0-3.0) Sodium 144 (136-148) mmol/L Potassium 3.9 (3.5-5.1) mmol/L Chloride 107 (98-107) mmol/L Carbon Dioxide 21.7 (21.0-32.0) mmol/L BUN 29 H (7.0-18.0) mg/dL Creatinine 1.6 H (0.8-1.3) mg/dL Est Cr Clr Drug Dosing 61.39 mL/min Estimated GFR (MDRD) 50.0 ml/min Glucose 224 H (74-106) mg/dL POC Glucose 420 H 362 H (60-110) mg/dL Calcium 8.6 (8.5-10.1) mg/dL Total Bilirubin (0.2-1.0) mg/dL AST (15-37) IU/L ALT (14-63) IU/L Alkaline Phosphatase (46-116) U/L Total Protein (6.4-8.2) g/dL Albumin (3.4-5.0) g/dL Globulin (2.6-4.0) g/dL Albumin/Globulin Ratio (0.9-1.6) Urine Color Urine Appearance Urine pH (5.0-8.0) Ur Specific [place] (1.001-1.035) Urine Protein (NEGATIVE) mg/dL Urine Glucose (UA) (NEGATIVE) mg/dL Urine Ketones (NEGATIVE) mg/dL Urine Occult Blood (NEGATIVE) Urine Nitrite (NEGATIVE) Urine Bilirubin (NEGATIVE) Urine Urobilinogen (<2.0) EU/dL Ur Leukocyte Esterase (NEGATIVE) Ketones (NEG) 04/18/20 04/18/20 Range/Units 05:01 05:18 WBC (4.0-11.0) K/uL RBC (4.50-5.90) M/uL Hgb (13.0-17.0) g/dL Hct (38.0-50.0) % MCV (80.0-98.0) fL MCH (27.0-32.0) pg MCHC (31.0-37.0) g/dL RDW Std Deviation (28.0-62.0) fl RDW Coeff of [place] (11.0-15.0) % Plt Count (150-400) K/uL MPV (7.40-12.00) fL Neut % (Auto) (48.0-80.0) % Lymph % (Auto) (16.0-40.0) % [place] % (Auto) (0.0-15.0) % Eos % (Auto) (0.0-7.0) % Baso % (Auto) (0.0-1.5) % Neut # (Auto) (1.4-5.7) K/uL Lymph # (Auto) (0.6-2.4) K/uL [place] # (Auto) (0.0-0.8) K/uL Eos # (Auto) (0.0-0.7) K/uL Baso # (Auto) (0.0-0.1) K/uL Nucleated RBC % /100WBC Nucleated RBCs # K/uL VBG pH (7.31-7.41) VBG pCO2 (35-45) mmHG VBG pO2 (30-40) mmHG VBG HCO3 (22-30) mEq/L VBG Total CO2 (41-51) mmol/L VBG Base Excess (-3.0-3.0) Sodium 144 (136-148) mmol/L Potassium 3.6 (3.5-5.1) mmol/L Chloride 108 H (98-107) mmol/L Carbon Dioxide 19.1 L (21.0-32.0) mmol/L BUN 26 H (7.0-18.0) mg/dL Creatinine 1.7 H (0.8-1.3) mg/dL Est Cr Clr Drug Dosing 57.78 mL/min Estimated GFR (MDRD) 46.6 ml/min Glucose 273 H (74-106) mg/dL POC Glucose 252 H (60-110) mg/dL Calcium 8.6 (8.5-10.1) mg/dL Total Bilirubin (0.2-1.0) mg/dL AST (15-37) IU/L ALT (14-63) IU/L Alkaline Phosphatase (46-116) U/L Total Protein (6.4-8.2) g/dL Albumin (3.4-5.0) g/dL Globulin (2.6-4.0) g/dL Albumin/Globulin Ratio (0.9-1.6) Urine Color Urine Appearance Urine pH (5.0-8.0) Ur Specific [place] (1.001-1.035) Urine Protein (NEGATIVE) mg/dL Urine Glucose (UA) (NEGATIVE) mg/dL Urine Ketones (NEGATIVE) mg/dL Urine Occult Blood (NEGATIVE) Urine Nitrite (NEGATIVE) Urine Bilirubin (NEGATIVE) Urine Urobilinogen (<2.0) EU/dL Ur Leukocyte Esterase (NEGATIVE) Ketones (NEG) Result Diagrams: 04/19/20 05:45 04/19/20 12:12 Sepsis Event Note - Evaluation Sepsis Screening Result: No Definite Risk - Focused Exam Vital Signs: Vital Signs Temp Pulse Resp BP Pulse Ox 04/18/20 06:00 19 96/48 L 94 L 04/18/20 05:00 37.3 C 18 121/67 99 04/18/20 04:00 86 18 128/85 98 04/18/20 02:15 37.2 C 90 18 121/73 97 04/18/20 00:17 82 18 128/74 98 04/17/20 22:31 35.8 C L 110 H 20 116/70 98 Date Exam was Performed: 04/20/20 Time Exam was Performed: 21:39 Problem List Initiated/Reviewed/Updated: Yes Orders Last 24hrs: Active Orders 24 hr Category Date Time Status Patient Status [ADT] Routine ADT 04/18/20 04:08 Active ADA Diabetic [[place] [employer] Diet] [DIET Diet 04/18/20 Breakfast Ordered ] Clear Liquid Diet [DIET] Diet 04/18/20 Breakfast Ordered Dextrose 5%-0.9% NaCl with KCl [D5 NS with 20 mEq KCl] Med 04/18/20 01:15 Active 1,000 ml IV ASDIRECTED Famotidine [Pepcid] Med 04/18/20 09:00 Active 20 mg IVPUSH DAILY GI Cocktail 20 ML PO x 1 Med 04/18/20 06:31 Ordered Alum Hydrox/Mag Hydrox/Simeth [Mag-Al Plus] 15 ml Lidocaine 2% [Xylocaine 2% Viscous] 5 ml PO ONETIME Insulin Regular, Human [NovoLIN R] 100 unit Med 04/18/20 06:00 Active Sodium Chloride 0.9% [Normal Saline] 99 ml IV TITRATE Sodium Chloride 0.9% [Normal Saline] 1,000 ml Med 04/17/20 22:45 Active IV ASDIRECTED Sodium Chloride 0.9% [Normal Saline] 1,000 ml Med 04/17/20 23:30 Active IV ASDIRECTED Sodium Chloride 0.9% [Normal Saline] 1,000 ml Med 04/18/20 06:30 Active IV ONETIME Medication Orders Famotidine (Pepcid) 20 mg IVPUSH DAILY [facility] Sodium Chloride (Normal Saline) 1,000 mls @ 999 mls/hr IV ASDIRECTED MARILYN Last Admin: 04/17/20 22:58 Dose: 999 mls/hr Documented by: JESSICA Sodium Chloride (Normal Saline) 1,000 mls @ 999 mls/hr IV ASDIRECTED MARILYN Last Admin: 04/18/20 00:17 Dose: 999 mls/hr Documented by: JESSICA Potassium Chloride/Dextrose/Sod Cl (D5 Ns With 20 Meq Kcl) 1,000 mls @ 150 mls/hr IV ASDIRECTED MARILYN Last Admin: 04/18/20 01:38 Dose: 150 mls/hr Documented by: JESSICA Insulin Human Regular 100 unit (/ Sodium Chloride) 100 mls @ 6 mls/hr IV TITRATE MARLIYN; Protocol Sodium Chloride (Normal Saline) 1,000 mls @ 999 mls/hr IV ONETIME ONE Stop: 04/18/20 07:30 Last Admin: 04/18/20 06:16 Dose: 999 mls/hr Documented by: SIMONE Assessment/Plan Comment:: 34 yo with pmh of DM who presents with dehydration, ORTEGA from likely partial treated DKA/hyperglycemia and gastritis Gastritis: continue PPI, antiemetics, advance diet as tolerated, given chronic nature would look into evaluated for gastroparesis, patient feeling better after fluid resuscitation in ED. DM: continue insulin drip, when tolerating oral diet will switch to sc insulin
[2020-04-18] MEDS: Promethazine 25 MG/ML SDV IM PRN ×3 (06:47→21:54)
[2020-04-18] MEDS ORDERED: Famotidine 20 MG/2 ML SDV IVPUSH SCH (09:00)
[2020-04-18] MEDS: Ondansetron 4 MG/2 ML SDV IVPUSH PRN ×3 (10:57→22:35)
[2020-04-18 12:46] LABS: BLOOD UREA NITROGEN,BUN 22 mg/dL (7.0-18.0); CARBON DIOXIDE,CO2 21.7 mmol/L (21.0-32.0); CHLORIDE,CL 111 mmol/L (98-107); GLUCOSE RANDOM 256 mg/dL (74-106); POTASSIUM,K 3.9 mmol/L (3.5-5.1); SODIUM,NA 144 mmol/L (136-148)
[2020-04-18] MEDS ORDERED: Acetaminophen 325 MG Tab PO ONE (14:44)
[2020-04-18] MEDS ORDERED: Acetaminophen 650 MG Supp RECTAL ONE (15:07)
[2020-04-18] MEDS ORDERED: Metoclopramide 10 MG/2 ML SDV IVPUSH ONE ×2 (16:40→17:30)
[2020-04-18] MEDS: Heparin Sodium 5,000 Units/ML Vial SUBCUT SCH (21:04)
[2020-04-19] MEDS: Metoclopramide 10 MG/2 ML SDV IVPUSH PRN ×2 (01:02→21:17)
[2020-04-19] MEDS ORDERED: Ibuprofen 600 MG Tab PO ONE (01:36)
[2020-04-19] MEDS ORDERED: Pantoprazole 40 MG in Sodium Chloride 0.9% 10 ML IV SCH (01:45)
[2020-04-19] MEDS: Ondansetron 4 MG/2 ML SDV IVPUSH PRN (03:34)
[2020-04-19] MEDS: Dextrose 5%-0.9% NaCl with KCl 1,000 ML IV SCH (05:17)
[2020-04-19] MEDS: Heparin Sodium 5,000 Units/ML Vial SUBCUT SCH ×3 (05:18→22:42)
[2020-04-19 06:15] LABS: BLOOD UREA NITROGEN,BUN 13 mg/dL (7.0-18.0); CARBON DIOXIDE,CO2 25.3 mmol/L (21.0-32.0); CHLORIDE,CL 107 mmol/L (98-107); GLUCOSE RANDOM 242 mg/dL (74-106); SODIUM,NA 142 mmol/L (136-148)
[2020-04-19] MEDS ORDERED: Magnesium Sulfate/Water 2 GM in Premix Bag 1 BAG IV ONE (07:42)
[2020-04-19] MEDS: Promethazine 25 MG/ML SDV IM PRN ×2 (08:18→19:06)
[2020-04-19] MEDS ORDERED: Haloperidol Lactate 5 MG/ML SDV IM ONE (09:11)
[2020-04-19] MEDS: Sodium Chloride 0.9% 1,000 ML IV SCH ×3 (10:03→22:42)
--- NOTE | 2020-04-19 11:17 | PCM.PN ---
- General Info Date of Service: 04/19/20 Subjective Update: Patient seen at bedside" c.o persistent wretching and non-bloody vomiting; mentions no fevers but occasional chills. - Review of Systems General: Reports: Chills. Denies: Fever, Appetite HEENT: Reports: No Symptoms Pulmonary: Reports: No Symptoms Cardiovascular: Reports: No Symptoms Gastrointestinal: Reports: Abdominal Pain, Nausea, Vomiting Genitourinary: Reports: No Symptoms Musculoskeletal: Reports: No Symptoms Skin: Reports: No Symptoms Neurological: Denies: Headache Psychiatric: Reports: No Symptoms - Patient Data Vitals - Most Recent: Last Vital Signs Temp 98.6 F 04/19/20 10:00 Pulse 86 04/18/20 04:00 Resp 16 04/19/20 10:00 BP 106/62 04/19/20 10:00 Pulse Ox 97 04/19/20 10:00 Weight - Most Recent: 76.839 kg I&O - Last 24 Hours: Intake & Output 04/18/20 04/19/20 04/19/20 22:59 06:59 14:59 Intake Total 6476 2978 Output Total 2280 2300 Balance 4196 678 Lab Results Last 24 Hours: Laboratory Results - last 24 hr 04/18/20 04/18/20 04/18/20 Range/Units 12:02 12:03 13:01 WBC (4.0-11.0) K/uL RBC (4.50-5.90) M/uL Hgb (13.0-17.0) g/dL Hct (38.0-50.0) % MCV (80.0-98.0) fL MCH (27.0-32.0) pg MCHC (31.0-37.0) g/dL RDW Std Deviation (28.0-62.0) fl RDW Coeff of Bryce (11.0-15.0) % Plt Count (150-400) K/uL MPV (7.40-12.00) fL Neut % (Auto) (48.0-80.0) % Lymph % (Auto) (16.0-40.0) % [place] % (Auto) (0.0-15.0) % Eos % (Auto) (0.0-7.0) % Baso % (Auto) (0.0-1.5) % Neut # (Auto) (1.4-5.7) K/uL Lymph # (Auto) (0.6-2.4) K/uL [place] # (Auto) (0.0-0.8) K/uL Eos # (Auto) (0.0-0.7) K/uL Baso # (Auto) (0.0-0.1) K/uL Nucleated RBC % /100WBC Nucleated RBCs # K/uL Sodium 144 (136-148) mmol/L Potassium 3.9 (3.5-5.1) mmol/L Chloride 111 H (98-107) mmol/L Carbon Dioxide 21.7 (21.0-32.0) mmol/L BUN 22 H (7.0-18.0) mg/dL Creatinine 1.2 (0.8-1.3) mg/dL Est Cr Clr Drug Dosing 81.86 mL/min Estimated GFR (MDRD) > 60.0 ml/min Glucose 256 H (74-106) mg/dL POC Glucose 248 H 227 H (60-110) mg/dL Calcium 8.4 L (8.5-10.1) mg/dL Phosphorus (2.6-4.7) mg/dL Magnesium (1.8-2.4) mg/dL SARS-CoV-2 RNA (RT-PCR) (NEGATIVE) 04/18/20 04/18/20 04/18/20 Range/Units 13:57 15:08 15:30 WBC (4.0-11.0) K/uL RBC (4.50-5.90) M/uL Hgb (13.0-17.0) g/dL Hct (38.0-50.0) % MCV (80.0-98.0) fL MCH (27.0-32.0) pg MCHC (31.0-37.0) g/dL RDW Std Deviation (28.0-62.0) fl RDW Coeff of Bryce (11.0-15.0) % Plt Count (150-400) K/uL MPV (7.40-12.00) fL Neut % (Auto) (48.0-80.0) % Lymph % (Auto) (16.0-40.0) % [place] % (Auto) (0.0-15.0) % Eos % (Auto) (0.0-7.0) % Baso % (Auto) (0.0-1.5) % Neut # (Auto) (1.4-5.7) K/uL Lymph # (Auto) (0.6-2.4) K/uL [place] # (Auto) (0.0-0.8) K/uL Eos # (Auto) (0.0-0.7) K/uL Baso # (Auto) (0.0-0.1) K/uL Nucleated RBC % /100WBC Nucleated RBCs # K/uL Sodium (136-148) mmol/L Potassium (3.5-5.1) mmol/L Chloride (98-107) mmol/L Carbon Dioxide (21.0-32.0) mmol/L BUN (7.0-18.0) mg/dL Creatinine (0.8-1.3) mg/dL Est Cr Clr Drug Dosing mL/min Estimated GFR (MDRD) ml/min Glucose (74-106) mg/dL POC Glucose 186 H 306 H (60-110) mg/dL Calcium (8.5-10.1) mg/dL Phosphorus (2.6-4.7) mg/dL Magnesium (1.8-2.4) mg/dL SARS-CoV-2 RNA (RT-PCR) POSITIVE H (NEGATIVE) 04/18/20 04/18/20 04/18/20 Range/Units 17:25 18:06 19:03 WBC (4.0-11.0) K/uL RBC (4.50-5.90) M/uL Hgb (13.0-17.0) g/dL Hct (38.0-50.0) % MCV (80.0-98.0) fL MCH (27.0-32.0) pg MCHC (31.0-37.0) g/dL RDW Std Deviation (28.0-62.0) fl RDW Coeff of Bryce (11.0-15.0) % Plt Count (150-400) K/uL MPV (7.40-12.00) fL Neut % (Auto) (48.0-80.0) % Lymph % (Auto) (16.0-40.0) % [place] % (Auto) (0.0-15.0) % Eos % (Auto) (0.0-7.0) % Baso % (Auto) (0.0-1.5) % Neut # (Auto) (1.4-5.7) K/uL Lymph # (Auto) (0.6-2.4) K/uL [place] # (Auto) (0.0-0.8) K/uL Eos # (Auto) (0.0-0.7) K/uL Baso # (Auto) (0.0-0.1) K/uL Nucleated RBC % /100WBC Nucleated RBCs # K/uL Sodium (136-148) mmol/L Potassium (3.5-5.1) mmol/L Chloride (98-107) mmol/L Carbon Dioxide (21.0-32.0) mmol/L BUN (7.0-18.0) mg/dL Creatinine (0.8-1.3) mg/dL Est Cr Clr Drug Dosing mL/min Estimated GFR (MDRD) ml/min Glucose (74-106) mg/dL POC Glucose 170 H 160 H 232 H (60-110) mg/dL Calcium (8.5-10.1) mg/dL Phosphorus (2.6-4.7) mg/dL Magnesium (1.8-2.4) mg/dL SARS-CoV-2 RNA (RT-PCR) (NEGATIVE) 04/18/20 04/18/20 04/18/20 Range/Units 20:08 20:59 21:50 WBC (4.0-11.0) K/uL RBC (4.50-5.90) M/uL Hgb (13.0-17.0) g/dL Hct (38.0-50.0) % MCV (80.0-98.0) fL MCH (27.0-32.0) pg MCHC (31.0-37.0) g/dL RDW Std Deviation (28.0-62.0) fl RDW Coeff of Bryce (11.0-15.0) % Plt Count (150-400) K/uL MPV (7.40-12.00) fL Neut % (Auto) (48.0-80.0) % Lymph % (Auto) (16.0-40.0) % [place] % (Auto) (0.0-15.0) % Eos % (Auto) (0.0-7.0) % Baso % (Auto) (0.0-1.5) % Neut # (Auto) (1.4-5.7) K/uL Lymph # (Auto) (0.6-2.4) K/uL [place] # (Auto) (0.0-0.8) K/uL Eos # (Auto) (0.0-0.7) K/uL Baso # (Auto) (0.0-0.1) K/uL Nucleated RBC % /100WBC Nucleated RBCs # K/uL Sodium (136-148) mmol/L Potassium (3.5-5.1) mmol/L Chloride (98-107) mmol/L Carbon Dioxide (21.0-32.0) mmol/L BUN (7.0-18.0) mg/dL Creatinine (0.8-1.3) mg/dL Est Cr Clr Drug Dosing mL/min Estimated GFR (MDRD) ml/min Glucose (74-106) mg/dL POC Glucose 240 H 217 H 196 H (60-110) mg/dL Calcium (8.5-10.1) mg/dL Phosphorus (2.6-4.7) mg/dL Magnesium (1.8-2.4) mg/dL SARS-CoV-2 RNA (RT-PCR) (NEGATIVE) 04/18/20 04/19/20 04/19/20 Range/Units 22:42 00:07 01:06 WBC (4.0-11.0) K/uL RBC (4.50-5.90) M/uL Hgb (13.0-17.0) g/dL Hct (38.0-50.0) % MCV (80.0-98.0) fL MCH (27.0-32.0) pg MCHC (31.0-37.0) g/dL RDW Std Deviation (28.0-62.0) fl RDW Coeff of Bryce (11.0-15.0) % Plt Count (150-400) K/uL MPV (7.40-12.00) fL Neut % (Auto) (48.0-80.0) % Lymph % (Auto) (16.0-40.0) % [place] % (Auto) (0.0-15.0) % Eos % (Auto) (0.0-7.0) % Baso % (Auto) (0.0-1.5) % Neut # (Auto) (1.4-5.7) K/uL Lymph # (Auto) (0.6-2.4) K/uL [place] # (Auto) (0.0-0.8) K/uL Eos # (Auto) (0.0-0.7) K/uL Baso # (Auto) (0.0-0.1) K/uL Nucleated RBC % /100WBC Nucleated RBCs # K/uL Sodium (136-148) mmol/L Potassium (3.5-5.1) mmol/L Chloride (98-107) mmol/L Carbon Dioxide (21.0-32.0) mmol/L BUN (7.0-18.0) mg/dL Creatinine (0.8-1.3) mg/dL Est Cr Clr Drug Dosing mL/min Estimated GFR (MDRD) ml/min Glucose (74-106) mg/dL POC Glucose 186 H 215 H 196 H (60-110) mg/dL Calcium (8.5-10.1) mg/dL Phosphorus (2.6-4.7) mg/dL Magnesium (1.8-2.4) mg/dL SARS-CoV-2 RNA (RT-PCR) (NEGATIVE) 04/19/20 04/19/20 04/19/20 Range/Units 02:19 04:07 05:08 WBC (4.0-11.0) K/uL RBC (4.50-5.90) M/uL Hgb (13.0-17.0) g/dL Hct (38.0-50.0) % MCV (80.0-98.0) fL MCH (27.0-32.0) pg MCHC (31.0-37.0) g/dL RDW Std Deviation (28.0-62.0) fl RDW Coeff of Bryce (11.0-15.0) % Plt Count (150-400) K/uL MPV (7.40-12.00) fL Neut % (Auto) (48.0-80.0) % Lymph % (Auto) (16.0-40.0) % [place] % (Auto) (0.0-15.0) % Eos % (Auto) (0.0-7.0) % Baso % (Auto) (0.0-1.5) % Neut # (Auto) (1.4-5.7) K/uL Lymph # (Auto) (0.6-2.4) K/uL [place] # (Auto) (0.0-0.8) K/uL Eos # (Auto) (0.0-0.7) K/uL Baso # (Auto) (0.0-0.1) K/uL Nucleated RBC % /100WBC Nucleated RBCs # K/uL Sodium (136-148) mmol/L Potassium (3.5-5.1) mmol/L Chloride (98-107) mmol/L Carbon Dioxide (21.0-32.0) mmol/L BUN (7.0-18.0) mg/dL Creatinine (0.8-1.3) mg/dL Est Cr Clr Drug Dosing mL/min Estimated GFR (MDRD) ml/min Glucose (74-106) mg/dL POC Glucose 209 H 198 H 229 H (60-110) mg/dL Calcium (8.5-10.1) mg/dL Phosphorus (2.6-4.7) mg/dL Magnesium (1.8-2.4) mg/dL SARS-CoV-2 RNA (RT-PCR) (NEGATIVE) 04/19/20 04/19/20 04/19/20 Range/Units 05:45 05:45 05:45 WBC 13.31 H (4.0-11.0) K/uL RBC 4.71 (4.50-5.90) M/uL Hgb 13.5 (13.0-17.0) g/dL Hct 41.7 (38.0-50.0) % MCV 88.5 (80.0-98.0) fL MCH 28.7 (27.0-32.0) pg MCHC 32.4 (31.0-37.0) g/dL RDW Std Deviation 42.4 (28.0-62.0) fl RDW Coeff of Bryce 13 (11.0-15.0) % Plt Count 184 (150-400) K/uL MPV 10.20 (7.40-12.00) fL Neut % (Auto) 78.7 (48.0-80.0) % Lymph % (Auto) 14.4 L (16.0-40.0) % [place] % (Auto) 6.8 (0.0-15.0) % Eos % (Auto) 0.0 (0.0-7.0) % Baso % (Auto) 0.1 (0.0-1.5) % Neut # (Auto) 10.5 H (1.4-5.7) K/uL Lymph # (Auto) 1.9 (0.6-2.4) K/uL [place] # (Auto) 0.9 H (0.0-0.8) K/uL Eos # (Auto) 0.0 (0.0-0.7) K/uL Baso # (Auto) 0.0 (0.0-0.1) K/uL Nucleated RBC % 0.0 /100WBC Nucleated RBCs # 0 K/uL Sodium 142 (136-148) mmol/L Potassium 4.0 (3.5-5.1) mmol/L Chloride 107 (98-107) mmol/L Carbon Dioxide 25.3 (21.0-32.0) mmol/L BUN 13 (7.0-18.0) mg/dL Creatinine 1.1 (0.8-1.3) mg/dL Est Cr Clr Drug Dosing 89.30 mL/min Estimated GFR (MDRD) > 60.0 ml/min Glucose 242 H (74-106) mg/dL POC Glucose 212 H (60-110) mg/dL Calcium 8.0 L (8.5-10.1) mg/dL Phosphorus 2.8 (2.6-4.7) mg/dL Magnesium 1.6 L (1.8-2.4) mg/dL SARS-CoV-2 RNA (RT-PCR) (NEGATIVE) 04/19/20 04/19/20 04/19/20 Range/Units 07:06 08:11 09:06 WBC (4.0-11.0) K/uL RBC (4.50-5.90) M/uL Hgb (13.0-17.0) g/dL Hct (38.0-50.0) % MCV (80.0-98.0) fL MCH (27.0-32.0) pg MCHC (31.0-37.0) g/dL RDW Std Deviation (28.0-62.0) fl RDW Coeff of Bryce (11.0-15.0) % Plt Count (150-400) K/uL MPV (7.40-12.00) fL Neut % (Auto) (48.0-80.0) % Lymph % (Auto) (16.0-40.0) % [place] % (Auto) (0.0-15.0) % Eos % (Auto) (0.0-7.0) % Baso % (Auto) (0.0-1.5) % Neut # (Auto) (1.4-5.7) K/uL Lymph # (Auto) (0.6-2.4) K/uL [place] # (Auto) (0.0-0.8) K/uL Eos # (Auto) (0.0-0.7) K/uL Baso # (Auto) (0.0-0.1) K/uL Nucleated RBC % /100WBC Nucleated RBCs # K/uL Sodium (136-148) mmol/L Potassium (3.5-5.1) mmol/L Chloride (98-107) mmol/L Carbon Dioxide (21.0-32.0) mmol/L BUN (7.0-18.0) mg/dL Creatinine (0.8-1.3) mg/dL Est Cr Clr Drug Dosing mL/min Estimated GFR (MDRD) ml/min Glucose (74-106) mg/dL POC Glucose 218 H 204 H 241 H (60-110) mg/dL Calcium (8.5-10.1) mg/dL Phosphorus (2.6-4.7) mg/dL Magnesium (1.8-2.4) mg/dL SARS-CoV-2 RNA (RT-PCR) (NEGATIVE) 04/19/20 04/19/20 Range/Units 09:58 11:04 WBC (4.0-11.0) K/uL RBC (4.50-5.90) M/uL Hgb (13.0-17.0) g/dL Hct (38.0-50.0) % MCV (80.0-98.0) fL MCH (27.0-32.0) pg MCHC (31.0-37.0) g/dL RDW Std Deviation (28.0-62.0) fl RDW Coeff of Bryce (11.0-15.0) % Plt Count (150-400) K/uL MPV (7.40-12.00) fL Neut % (Auto) (48.0-80.0) % Lymph % (Auto) (16.0-40.0) % [place] % (Auto) (0.0-15.0) % Eos % (Auto) (0.0-7.0) % Baso % (Auto) (0.0-1.5) % Neut # (Auto) (1.4-5.7) K/uL Lymph # (Auto) (0.6-2.4) K/uL [place] # (Auto) (0.0-0.8) K/uL Eos # (Auto) (0.0-0.7) K/uL Baso # (Auto) (0.0-0.1) K/uL Nucleated RBC % /100WBC Nucleated RBCs # K/uL Sodium (136-148) mmol/L Potassium (3.5-5.1) mmol/L Chloride (98-107) mmol/L Carbon Dioxide (21.0-32.0) mmol/L BUN (7.0-18.0) mg/dL Creatinine (0.8-1.3) mg/dL Est Cr Clr Drug Dosing mL/min Estimated GFR (MDRD) ml/min Glucose (74-106) mg/dL POC Glucose 209 H 173 H (60-110) mg/dL Calcium (8.5-10.1) mg/dL Phosphorus (2.6-4.7) mg/dL Magnesium (1.8-2.4) mg/dL SARS-CoV-2 RNA (RT-PCR) (NEGATIVE) Luke Results Last 24 Hours: Microbiology 04/18/20 15:15 Influenza Type A Antigen Screen - Final Nasopharyngeal Swab NEGATIVE INFLUENZA A VIRUS AG REFERENCE RANGE: NEGATIVE Influenza Type B Antigen Screen - Final NEGATIVE INFLUENZA B VIRUS AG REFERENCE RANGE: NEGATIVE Med Orders - Current: Current Medications Heparin Sodium (Porcine) (Heparin Sodium) 5,000 units SUBCUT Q8H [facility] Last Admin: 04/19/20 05:18 Dose: 5,000 units Documented by: Sodium Chloride (Normal Saline) 1,000 mls @ 999 mls/hr IV ASDIRECTED [facility] Last Admin: 04/17/20 22:58 Dose: 999 mls/hr Documented by: Sodium Chloride (Normal Saline) 1,000 mls @ 999 mls/hr IV ASDIRECTED [facility] Last Admin: 04/18/20 00:17 Dose: 999 mls/hr Documented by: Insulin Human Regular 100 unit (/ Sodium Chloride) 100 mls @ 6 mls/hr IV TITRATE [facility]ILY[facility]; Protocol Last Titration: 04/19/20 11:09 Dose: 1.5 unit/hr, 1.5 mls/hr Documented by: Pantoprazole Sodium 40 mg/ (Sodium Chloride) 10 mls @ 300 mls/hr IV DAILY [facility] Last Admin: 04/19/20 01:54 Dose: 300 mls/hr Documented by: Sodium Chloride (Normal Saline) 1,000 mls @ 150 mls/hr IV Q6H [facility] Last Admin: 04/19/20 10:03 Dose: 150 mls/hr Documented by: Metoclopramide HCl (Reglan) 10 mg IVPUSH Q6H PRN PRN Reason: Nausea/Vomiting Last Admin: 04/19/20 01:02 Dose: 10 mg Documented by: Ondansetron HCl (Zofran) 4 mg IVPUSH Q4H PRN PRN Reason: Nausea Last Admin: 04/19/20 03:34 Dose: 4 mg Documented by: Promethazine HCl (Phenergan) 25 mg IM Q6H PRN PRN Reason: Nausea Last Admin: 04/19/20 08:18 Dose: 25 mg Documented by: Discontinued Medications Acetaminophen (Tylenol) 325 mg PO NOW ONE Stop: 04/18/20 14:45 Last Admin: 04/18/20 15:38 Dose: Not Given Documented by: Acetaminophen (Tylenol) 650 mg RECTAL NOW ONE Stop: 04/18/20 15:08 Last Admin: 04/18/20 15:32 Dose: 650 mg Documented by: Al Hydroxide/Mg Hydroxide 15 (ml/ Lidocaine HCl 5 ml) 0 ml PO ONETIME ONE Stop: 04/18/20 07:16 Last Admin: 04/18/20 07:37 Dose: 20 each Documented by: Famotidine (Pepcid) 20 mg IVPUSH DAILY [facility] Last Admin: 04/18/20 08:54 Dose: 20 mg Documented by: Haloperidol Lactate (Haldol) 5 mg IM ONETIME ONE Stop: 04/18/20 04:42 Last Admin: 04/18/20 04:42 Dose: 5 mg Documented by: Haloperidol Lactate (Haldol) Confirm Administered Dose 5 mg .ROUTE .STK-MED ONE Stop: 04/18/20 04:41 Last Admin: 04/18/20 05:07 Dose: Not Given Documented by: Haloperidol Lactate (Haldol) 5 mg IM ONETIME ONE Stop: 04/19/20 09:12 Last Admin: 04/19/20 10:00 Dose: 5 mg Documented by: Potassium Chloride/Dextrose/Sod Cl (D5 Ns With 20 Meq Kcl) 1,000 mls @ 150 mls/hr IV ASDIRECTED [facility] Last Admin: 04/19/20 05:17 Dose: 150 mls/hr Documented by: Insulin Human Regular 100 unit (/ Sodium Chloride) 100 mls @ 8 mls/hr IV TITRATE MARILYN; Protocol Last Titration: 04/18/20 07:08 Dose: 2 unit/hr, 2 mls/hr Documented by: Sodium Chloride (Normal Saline) 1,000 mls @ 999 mls/hr IV ONETIME ONE Stop: 04/18/20 07:30 Last Admin: 04/18/20 06:16 Dose: 999 mls/hr Documented by: Magnesium Sulfate 2 gm/ Premix 50 mls @ 50 mls/hr IV ONETIME ONE Stop: 04/19/20 08:41 Last Admin: 04/19/20 07:58 Dose: 50 mls/hr Documented by: Ibuprofen (Motrin) 600 mg PO ONETIME ONE Stop: 04/19/20 01:37 Last Admin: 04/19/20 01:54 Dose: Not Given Documented by: Metoclopramide HCl (Reglan) 10 mg IVPUSH ONETIME ONE Stop: 04/17/20 22:58 Last Admin: 04/17/20 22:58 Dose: 10 mg Documented by: Metoclopramide HCl (Reglan) Confirm Administered Dose 10 mg .ROUTE .STK-MED ONE Stop: 04/17/20 22:56 Last Admin: 04/17/20 22:59 Dose: Not Given Documented by: Metoclopramide HCl (Reglan) 5 mg IVPUSH ONETIME ONE Stop: 04/18/20 17:31 Last Admin: 04/18/20 17:20 Dose: 5 mg Documented by: Ondansetron HCl (Zofran) 4 mg IVPUSH ONETIME ONE Stop: 04/17/20 22:51 Last Admin: 04/17/20 23:00 Dose: Not Given Documented by: Ondansetron HCl (Zofran) 4 mg IVPUSH ONETIME ONE Stop: 04/18/20 01:32 Last Admin: 04/18/20 01:37 Dose: 4 mg Documented by: Ondansetron HCl (Zofran) 4 mg IVPUSH ONETIME ONE Stop: 04/18/20 02:12 Last Admin: 04/18/20 02:25 Dose: 4 mg Documented by: Ondansetron HCl (Zofran) 4 mg IVPUSH ONETIME ONE Stop: 04/18/20 15:07 Last Admin: 04/18/20 15:29 Dose: 4 mg Documented by: Potassium Chloride (Potassium Chloride) 40 meq PO ONETIME ONE Stop: 04/18/20 01:11 Last Admin: 04/18/20 01:21 Dose: 40 meq Documented by: Sodium Chloride (Normal Saline) 500 ml IV ONETIME ONE Stop: 04/18/20 06:17 Last Admin: 04/18/20 06:47 Dose: Not Given Documented by: - Exam Quality Assessment: No: Supplemental Oxygen General: Alert, Oriented, Cooperative, Mild Distress HEENT: EOMI Neck: Supple Lungs: Clear to Auscultation, Normal Respiratory Effort Cardiovascular: Regular Rate, Regular Rhythm GI/Abdominal Exam: Soft, Other (diffuse amdominal tenderness; no rebound tenderness; predominanly in epigastrum ) Neurological: No New Focal Deficit, Normal Speech Psy/Mental Status: Alert, Normal Affect, Normal Mood Sepsis Event Note - Evaluation Sepsis Screening Result: Severe Sepsis Risk - Focused Exam Vital Signs: Vital Signs Temp Resp BP Pulse Ox 04/19/20 10:00 98.6 F 16 106/62 97 04/19/20 09:00 98.8 F 14 138/65 97 04/19/20 08:00 98.6 F 24 H 136/81 96 04/19/20 07:00 12 150/87 H 98 04/19/20 06:00 12 115/69 98 04/19/20 05:00 17 128/87 98 04/19/20 04:00 99.1 F 15 134/82 97 04/19/20 03:00 19 134/86 97 04/19/20 02:00 22 H 104/64 95 04/19/20 01:00 19 132/74 100 04/19/20 00:00 98.9 F 14 102/57 L 96 Date Exam was Performed: 04/19/20 Time Exam was Performed: 11:21 - Problem List Review Problem List Initiated/Reviewed/Updated: Yes - My Orders Last 24 Hours: My Active Orders 04/18/20 14:46 Isolation [COMM] Routine - Plan Plan:: 34 yo with pmh of DM who presents with dehydration, ORTEGA from likely partial treated DKA/hyperglycemia and gastritis Gastritis: continue PPI, antiemetics, advance diet as tolerated, given chronic nature would look into evaluated for gastroparesis DM: continue insulin drip, when tolerating oral diet will switch to sc insulin; will discontinue D5-NS; switch to NS for now ; repeat BMP at 12 noon. N/V: will trial a one time dose of Haldol; continue IV fluids and other regimens for n/v including Reglan, Phenergan and Zofran Hypomagnesemia: repleted in AM w. 2 grams ; recheck tomorrow COVID positive: currently patient is hemodynamically stable and no signs of respiratory distress. Saturations are WNL on room air. Will continue to monitor; no changes to current plan. Influenza negative. Infectious control notified and appropriate channels for patient contact initiated Switched to isolation room; contact precaution/isolation precautions ; no visitors as well. eICU made aware
--- NOTE | 2020-04-19 12:26 | PN ---
THC Physician - Brief Progress [id number]/25/2020 12:09[facility] Bill Muniz, [place] - MWN (ALMN) - MWN ICULAURAKRISTOFER ARAUZPhilip, COVID+Date of Service 04/19/2020 12:09HP I/Events of Note EICU progress note34 year old male with DKA and Covid 19Still c/o of retching and vo miting per notation todayLabs are improvedMag this am was 1.6 Advised:Titrate off insulin gtt, and on to his pumpConsider tums to help calm stomach on top of reglanMay need to sit patient up and have hi m ambulate some to help with diaphragm and gut motilityOther suggestion: try having the patient lay o n hot packs and /or put on abdomen to help release some of the muscle spasms, and hypereactivity debora g the spinal levels in the L spine/ T spine areaOrdered:Deferred to bedsideHave reviewed in the chart :Labsand Patient on cameraSuggest:Continue treatment, convert back to pump, patient should attempt to eat and push fluids if possibleThank you for involving the EICU in the care of this patient.Will con tinue to follow along and monitor closely with excellent bedside team.Interventions Minor-Communicati on with other healthcare providers and/or family, Routine modifications to care plan (e.g. PRN medica tions for pain, fever)
[2020-04-19 12:51] LABS: BLOOD UREA NITROGEN,BUN 10 mg/dL (7.0-18.0); CARBON DIOXIDE,CO2 25.4 mmol/L (21.0-32.0); CHLORIDE,CL 104 mmol/L (98-107); GLUCOSE RANDOM 187 mg/dL (74-106); POTASSIUM,K 3.6 mmol/L (3.5-5.1); SODIUM,NA 141 mmol/L (136-148)
[2020-04-19 21:31] VITALS: BP 140/94
--- NOTE | 2020-04-19 21:44 | PCM.SN.2 ---
- Free Text/Narrative Note: Patient had requested discharge this evening. He reports nausea has improved and is tolerating an oral diet. He reports a migraine but feels he would be better able to manage this at home. He reports he has a working insulin pump at home. Patient was informed to watch out for worsening symptoms of shortness of breath and fevers as symptoms sometimes evolve with COVID infections. Patient understands the need to quarantine and is keeping in touch with the [facility].
--- NOTE | 2020-04-20 10:35 | PCM.DCSUM1 ---
<Stephen Chen - Last Filed: 04/20/20 10:35> Discharge Summary - Hospital Course Free Text/Narrative:: 34 yo male with pmh of type 1 DM who for the past month his insulin pump has not been working. He has been giving himself boluses of insulin at home to control his blood sugars. He reports one day history of nausea and vomiting. He reports he has not been able to keep anything down for 24 hours. He has vomited over 20 times. He reports stomach pain but that has improved. He denies any blood in stool or vomit. He denies any fevers, cough or shortness of breath. He reports his blood glucoses at home recently have been undetectable/high. He has [place] on a road trip and when he arrived home he went straight to the ED. ED course: he received IV fluids and was started on an insulin drip. CT abdomen was unremarkable. Patient reports chronic nausea and has been taking cannabis for nausea and headaches. On his road trip he did not take any cannabis before this episode of nausea and vomiting. Hospital course: Gastritis: continued on PPI, antiemetics, given chronic nature would look into evaluated for gastroparesis, patient feeling better after fluid resuscitation in ED. continued insulin drip, day prior to discharge: pt still having episodes of N/V despite improvement of labs. One time dose of Haldol provided with subsequent improvement of Nausea vomiting . Increasing fevers and chills w. TMAX: 100.3; tested for COVID and influenza. Recieved Tylenol po and rectal. COVID positive. pt throughout this time however saturating well w.o any signs of respiratory distress. Infectious control and appropriate state infectious control personnel notified. Isolation precautions initiated. eICU also notified. Discharge Patient had requested discharge in the evening of April 19. Reported nausea has improved and is tolerating an oral diet. He reported a migraine but feels he would be better able to manage this at home. He reports he has a working insulin pump at home. Patient was informed to watch out for worsening symptoms of shortness of breath and fevers as symptoms sometimes evolve with COVID infections. Patient understands the need to quarantine and is keeping in touch with the state health department. Pt requesting discharge. Pt discharged in stable condition with appropriate information regarding notifying and returning based off of symptom profile. Advised to avoid unnecessary contact with others. Provided rx for Zofarn for N/V symptomatic relief at home. Discussed insulin requirements, fluid intake and when to notify providers and/or proceed to ED. Discharged in stable condition. - Discharge Data Discharge Date: 04/19/20 Discharge Disposition: Home, Self-Care 01 Condition: Fair - Referral to Home Health Primary Care Physician: Khoa Coronado MD - Discharge Plan Prescriptions/Med Rec: Ondansetron [Zofran Odt] 8 mg PO Q6H PRN #20 tab.rapdis PRN Reason: Nausea Home Medications: Home Meds ALPRAZolam [Alprazolam ER] 0.5 mg PO BID PRN 11/24/19 [History] Cannabidiol (Cbd) Extract [Cannabis (Medical)] 1 dose PO BID 11/24/19 [History] Cimetidine [Acid [employer] Equipment [employer]] 600 mg PO ASDIRECTED PRN 11/24/19 [History] Glucagon,Human Recombinant [Glucagon Emergency Kit] 1 injection SUBCUT ASDIRECTED PRN 11/24/19 [History] Insulin Aspart [NovoLOG] 1 injection SUBCUT ASDIRECTED 11/24/19 [History] atorvaSTATin Calcium [Atorvastatin Calcium] 10 mg PO DAILY 11/24/19 [History] lisinopriL [Lisinopril] 5 mg PO DAILY 11/24/19 [History] Ondansetron [Zofran Odt] 8 mg PO Q6H PRN #20 tab.rapdis 04/19/20 [Rx] Patient Handouts: Ondansetron oral dissolving tablet, Nausea and Vomiting, Adult, [id number], Dehydration, Adult, [id number], Type 1 Diabetes Mellitus, Self Care, Adult, [id number], Preventing Diabetic Ketoacidosis Forms: ED Department Discharge Referrals: Khoa Coronado MD [Primary Care Provider] - - Discharge Summary/Plan Comment DC Time >30 min.: No - Patient Data Vitals - Most Recent: Last Vital Signs Temp 99.3 F 04/19/20 21:00 Pulse 86 04/18/20 04:00 Resp 19 04/19/20 21:00 BP 140/94 H 04/19/20 21:00 Pulse Ox 96 04/19/20 21:00 Weight - Most Recent: 76.839 kg I&O - Last 24 hours: Intake & Output 04/19/20 04/20/20 04/20/20 22:59 06:59 14:59 Intake Total 3442 Output Total 3420 Balance 22 Lab Results - Last 24 hrs: Laboratory Results - last 24 hr 04/19/20 04/19/20 04/19/20 Range/Units 11:04 12:04 12:12 Sodium 141 (136-148) mmol/L Potassium 3.6 (3.5-5.1) mmol/L Chloride 104 (98-107) mmol/L Carbon Dioxide 25.4 (21.0-32.0) mmol/L BUN 10 (7.0-18.0) mg/dL Creatinine 1.0 (0.8-1.3) mg/dL Est Cr Clr Drug Dosing 98.23 mL/min Estimated GFR (MDRD) > 60.0 ml/min Glucose 187 H (74-106) mg/dL POC Glucose 173 H 168 H (60-110) mg/dL Calcium 8.3 L (8.5-10.1) mg/dL 04/19/20 04/19/20 04/19/20 Range/Units 13:06 14:03 15:03 Sodium (136-148) mmol/L Potassium (3.5-5.1) mmol/L Chloride (98-107) mmol/L Carbon Dioxide (21.0-32.0) mmol/L BUN (7.0-18.0) mg/dL Creatinine (0.8-1.3) mg/dL Est Cr Clr Drug Dosing mL/min Estimated GFR (MDRD) ml/min Glucose (74-106) mg/dL POC Glucose 184 H 175 H 195 H (60-110) mg/dL Calcium (8.5-10.1) mg/dL 04/19/20 04/19/20 04/19/20 Range/Units 15:43 16:51 17:55 Sodium (136-148) mmol/L Potassium (3.5-5.1) mmol/L Chloride (98-107) mmol/L Carbon Dioxide (21.0-32.0) mmol/L BUN (7.0-18.0) mg/dL Creatinine (0.8-1.3) mg/dL Est Cr Clr Drug Dosing mL/min Estimated GFR (MDRD) ml/min Glucose (74-106) mg/dL POC Glucose 166 H 156 H 157 H (60-110) mg/dL Calcium (8.5-10.1) mg/dL 04/19/20 Range/Units 19:05 Sodium (136-148) mmol/L Potassium (3.5-5.1) mmol/L Chloride (98-107) mmol/L Carbon Dioxide (21.0-32.0) mmol/L BUN (7.0-18.0) mg/dL Creatinine (0.8-1.3) mg/dL Est Cr Clr Drug Dosing mL/min Estimated GFR (MDRD) ml/min Glucose (74-106) mg/dL POC Glucose 147 H (60-110) mg/dL Calcium (8.5-10.1) mg/dL Med Orders - Current: Current Medications Discontinued Medications Acetaminophen (Tylenol) 325 mg PO NOW ONE Stop: 04/18/20 14:45 Last Admin: 04/18/20 15:38 Dose: Not Given Documented by: Acetaminophen (Tylenol) 650 mg RECTAL NOW ONE Stop: 04/18/20 15:08 Last Admin: 04/18/20 15:32 Dose: 650 mg Documented by: Al Hydroxide/Mg Hydroxide 15 (ml/ Lidocaine HCl 5 ml) 0 ml PO ONETIME ONE Stop: 04/18/20 07:16 Last Admin: 04/18/20 07:37 Dose: 20 each Documented by: Famotidine (Pepcid) 20 mg IVPUSH DAILY [facility] Last Admin: 04/18/20 08:54 Dose: 20 mg Documented by: Haloperidol Lactate (Haldol) 5 mg IM ONETIME ONE Stop: 04/18/20 04:42 Last Admin: 04/18/20 04:42 Dose: 5 mg Documented by: Haloperidol Lactate (Haldol) Confirm Administered Dose 5 mg .ROUTE .STK-MED ONE Stop: 04/18/20 04:41 Last Admin: 04/18/20 05:07 Dose: Not Given Documented by: Haloperidol Lactate (Haldol) 5 mg IM ONETIME ONE Stop: 04/19/20 09:12 Last Admin: 04/19/20 10:00 Dose: 5 mg Documented by: Heparin Sodium (Porcine) (Heparin Sodium) 5,000 units SUBCUT Q8H [facility] Last Admin: 04/19/20 22:42 Dose: Not Given Documented by: Sodium Chloride (Normal Saline) 1,000 mls @ 999 mls/hr IV ASDIRECTED [facility] Last Admin: 04/17/20 22:58 Dose: 999 mls/hr Documented by: Sodium Chloride (Normal Saline) 1,000 mls @ 999 mls/hr IV ASDIRECTED [facility] Last Admin: 04/18/20 00:17 Dose: 999 mls/hr Documented by: Potassium Chloride/Dextrose/Sod Cl (D5 Ns With 20 Meq Kcl) 1,000 mls @ 150 mls/hr IV ASDIRECTED [facility] Last Admin: 04/19/20 05:17 Dose: 150 mls/hr Documented by: Insulin Human Regular 100 unit (/ Sodium Chloride) 100 mls @ 8 mls/hr IV TITRATE [facility]; Protocol Last Titration: 04/18/20 07:08 Dose: 2 unit/hr, 2 mls/hr Documented by: Insulin Human Regular 100 unit (/ Sodium Chloride) 100 mls @ 6 mls/hr IV TITRATE [facility]; Protocol Last Titration: 04/19/20 21:24 Dose: 1 unit/hr, 1 mls/hr Documented by: Sodium Chloride (Normal Saline) 1,000 mls @ 999 mls/hr IV ONETIME ONE Stop: 04/18/20 07:30 Last Admin: 04/18/20 06:16 Dose: 999 mls/hr Documented by: Pantoprazole Sodium 40 mg/ (Sodium Chloride) 10 mls @ 300 mls/hr IV DAILY [facility] Last Admin: 04/19/20 01:54 Dose: 300 mls/hr Documented by: Magnesium Sulfate 2 gm/ Premix 50 mls @ 50 mls/hr IV ONETIME ONE Stop: 04/19/20 08:41 Last Admin: 04/19/20 07:58 Dose: 50 mls/hr Documented by: Sodium Chloride (Normal Saline) 1,000 mls @ 150 mls/hr IV Q6H [facility] Last Admin: 04/19/20 22:42 Dose: Not Given Documented by: Ibuprofen (Motrin) 600 mg PO ONETIME ONE Stop: 04/19/20 01:37 Last Admin: 04/19/20 01:54 Dose: Not Given Documented by: Metoclopramide HCl (Reglan) 10 mg IVPUSH ONETIME ONE Stop: 04/17/20 22:58 Last Admin: 04/17/20 22:58 Dose: 10 mg Documented by: Metoclopramide HCl (Reglan) Confirm Administered Dose 10 mg .ROUTE .STK-MED ONE Stop: 04/17/20 22:56 Last Admin: 04/17/20 22:59 Dose: Not Given Documented by: Metoclopramide HCl (Reglan) 5 mg IVPUSH ONETIME ONE Stop: 04/18/20 17:31 Last Admin: 04/18/20 17:20 Dose: 5 mg Documented by: Metoclopramide HCl (Reglan) 10 mg IVPUSH Q6H PRN PRN Reason: Nausea/Vomiting Last Admin: 04/19/20 21:17 Dose: 10 mg Documented by: Ondansetron HCl (Zofran) 4 mg IVPUSH ONETIME ONE Stop: 04/17/20 22:51 Last Admin: 04/17/20 23:00 Dose: Not Given Documented by: Ondansetron HCl (Zofran) 4 mg IVPUSH ONETIME ONE Stop: 04/18/20 01:32 Last Admin: 04/18/20 01:37 Dose: 4 mg Documented by: Ondansetron HCl (Zofran) 4 mg IVPUSH ONETIME ONE Stop: 04/18/20 02:12 Last Admin: 04/18/20 02:25 Dose: 4 mg Documented by: Ondansetron HCl (Zofran) 4 mg IVPUSH Q4H PRN PRN Reason: Nausea Last Admin: 04/19/20 03:34 Dose: 4 mg Documented by: Ondansetron HCl (Zofran) 4 mg IVPUSH ONETIME ONE Stop: 04/18/20 15:07 Last Admin: 04/18/20 15:29 Dose: 4 mg Documented by: Potassium Chloride (Potassium Chloride) 40 meq PO ONETIME ONE Stop: 04/18/20 01:11 Last Admin: 04/18/20 01:21 Dose: 40 meq Documented by: Promethazine HCl (Phenergan) 25 mg IM Q6H PRN PRN Reason: Nausea Last Admin: 04/19/20 19:06 Dose: 25 mg Documented by: Sodium Chloride (Normal Saline) 500 ml IV ONETIME ONE Stop: 04/18/20 06:17 Last Admin: 04/18/20 06:47 Dose: Not Given Documented by: Byron Hussein - Last Filed: 04/20/20 21:39> Discharge Summary - Referral to Home Health Primary Care Physician: Khoa Coronado MD - Patient Data Vitals - Most Recent: Last Vital Signs Temp 37.4 C 04/19/20 21:00 Pulse 86 04/18/20 04:00 Resp 19 04/19/20 21:00 BP 140/94 H 04/19/20 21:00 Pulse Ox 96 04/19/20 21:00 Lab Results - Last 24 hrs: Laboratory Results - last 24 hr 04/19/20 04/19/20 Range/Units 20:06 21:07 POC Glucose 184 H 148 H (60-110) mg/dL Med Orders - Current: Current Medications Discontinued Medications Acetaminophen (Tylenol) 325 mg PO NOW ONE Stop: 04/18/20 14:45 Last Admin: 04/18/20 15:38 Dose: Not Given Documented by: Acetaminophen (Tylenol) 650 mg RECTAL NOW ONE Stop: 04/18/20 15:08 Last Admin: 04/18/20 15:32 Dose: 650 mg Documented by: Al Hydroxide/Mg Hydroxide 15 (ml/ Lidocaine HCl 5 ml) 0 ml PO ONETIME ONE Stop: 04/18/20 07:16 Last Admin: 04/18/20 07:37 Dose: 20 each Documented by: Famotidine (Pepcid) 20 mg IVPUSH DAILY [facility] Last Admin: 04/18/20 08:54 Dose: 20 mg Documented by: Haloperidol Lactate (Haldol) 5 mg IM ONETIME ONE Stop: 04/18/20 04:42 Last Admin: 04/18/20 04:42 Dose: 5 mg Documented by: Haloperidol Lactate (Haldol) Confirm Administered Dose 5 mg .ROUTE .STK-MED ONE Stop: 04/18/20 04:41 Last Admin: 04/18/20 05:07 Dose: Not Given Documented by: Haloperidol Lactate (Haldol) 5 mg IM ONETIME ONE Stop: 04/19/20 09:12 Last Admin: 04/19/20 10:00 Dose: 5 mg Documented by: Heparin Sodium (Porcine) (Heparin Sodium) 5,000 units SUBCUT Q8H [facility] Last Admin: 04/19/20 22:42 Dose: Not Given Documented by: Sodium Chloride (Normal Saline) 1,000 mls @ 999 mls/hr IV ASDIRECTED [facility] Last Admin: 04/17/20 22:58 Dose: 999 mls/hr Documented by: Sodium Chloride (Normal Saline) 1,000 mls @ 999 mls/hr IV ASDIRECTED [facility] Last Admin: 04/18/20 00:17 Dose: 999 mls/hr Documented by: Potassium Chloride/Dextrose/Sod Cl (D5 Ns With 20 Meq Kcl) 1,000 mls @ 150 mls/hr IV ASDIRECTED [facility] Last Admin: 04/19/20 05:17 Dose: 150 mls/hr Documented by: Insulin Human Regular 100 unit (/ Sodium Chloride) 100 mls @ 8 mls/hr IV TITRATE [facility]; Protocol Last Titration: 04/18/20 07:08 Dose: 2 unit/hr, 2 mls/hr Documented by: Insulin Human Regular 100 unit (/ Sodium Chloride) 100 mls @ 6 mls/hr IV TITRATE [facility]; Protocol Last Titration: 04/19/20 21:24 Dose: 1 unit/hr, 1 mls/hr Documented by: Sodium Chloride (Normal Saline) 1,000 mls @ 999 mls/hr IV ONETIME ONE Stop: 04/18/20 07:30 Last Admin: 04/18/20 06:16 Dose: 999 mls/hr Documented by: Pantoprazole Sodium 40 mg/ (Sodium Chloride) 10 mls @ 300 mls/hr IV DAILY [facility] Last Admin: 04/19/20 01:54 Dose: 300 mls/hr Documented by: Magnesium Sulfate 2 gm/ Premix 50 mls @ 50 mls/hr IV ONETIME ONE Stop: 04/19/20 08:41 Last Admin: 04/19/20 07:58 Dose: 50 mls/hr Documented by: Sodium Chloride (Normal Saline) 1,000 mls @ 150 mls/hr IV Q6H [facility] Last Admin: 04/19/20 22:42 Dose: Not Given Documented by: Ibuprofen (Motrin) 600 mg PO ONETIME ONE Stop: 04/19/20 01:37 Last Admin: 04/19/20 01:54 Dose: Not Given Documented by: Metoclopramide HCl (Reglan) 10 mg IVPUSH ONETIME ONE Stop: 04/17/20 22:58 Last Admin: 04/17/20 22:58 Dose: 10 mg Documented by: Metoclopramide HCl (Reglan) Confirm Administered Dose 10 mg .ROUTE .STK-MED ONE Stop: 04/17/20 22:56 Last Admin: 04/17/20 22:59 Dose: Not Given Documented by: Metoclopramide HCl (Reglan) 5 mg IVPUSH ONETIME ONE Stop: 04/18/20 17:31 Last Admin: 04/18/20 17:20 Dose: 5 mg Documented by: Metoclopramide HCl (Reglan) 10 mg IVPUSH Q6H PRN PRN Reason: Nausea/Vomiting Last Admin: 04/19/20 21:17 Dose: 10 mg Documented by: Ondansetron HCl (Zofran) 4 mg IVPUSH ONETIME ONE Stop: 04/17/20 22:51 Last Admin: 04/17/20 23:00 Dose: Not Given Documented by: Ondansetron HCl (Zofran) 4 mg IVPUSH ONETIME ONE Stop: 04/18/20 01:32 Last Admin: 04/18/20 01:37 Dose: 4 mg Documented by: Ondansetron HCl (Zofran) 4 mg IVPUSH ONETIME ONE Stop: 04/18/20 02:12 Last Admin: 04/18/20 02:25 Dose: 4 mg Documented by: Ondansetron HCl (Zofran) 4 mg IVPUSH Q4H PRN PRN Reason: Nausea Last Admin: 04/19/20 03:34 Dose: 4 mg Documented by: Ondansetron HCl (Zofran) 4 mg IVPUSH ONETIME ONE Stop: 04/18/20 15:07 Last Admin: 04/18/20 15:29 Dose: 4 mg Documented by: Potassium Chloride (Potassium Chloride) 40 meq PO ONETIME ONE Stop: 04/18/20 01:11 Last Admin: 04/18/20 01:21 Dose: 40 meq Documented by: Promethazine HCl (Phenergan) 25 mg IM Q6H PRN PRN Reason: Nausea Last Admin: 04/19/20 19:06 Dose: 25 mg Documented by: Sodium Chloride (Normal Saline) 500 ml IV ONETIME ONE Stop: 04/18/20 06:17 Last Admin: 04/18/20 06:47 Dose: Not Given Documented by: - Free Text/Narrative Note: I have seen and evaluated the patient with the resident. I have discussed findings and treatment plan with resident. I agree with the assessment and plan as outlined in the following note.
== END 2020-04-19 22:15 | disposition home or self-care (01) | DRG 637 ==
LOC: MW.ED 22:09 → MW.ICU 04-18 04:08
PROVIDERS: ADMIT Internal Medicine; ATTEND Internal Medicine
PROC: 8E0ZXY6 Isolation (ICD-10-PCS; principal; 2020-04-18)
DX: E10.10 Type 1 diabetes mellitus with ketoacidosis without coma (principal); U07.1 COVID-19; N17.9 Acute kidney failure, unspecified; K29.70 Gastritis, unspecified, without bleeding; E86.0 Dehydration; E83.42 Hypomagnesemia; E78.5 Hyperlipidemia, unspecified; K21.9 Gastro-esophageal reflux disease without esophagitis; F41.9 Anxiety disorder, unspecified; F32.9 Major depressive disorder, single episode, unspecified; E78.00 Pure hypercholesterolemia, unspecified; E10.42 Type 1 diabetes mellitus with diabetic polyneuropathy; M54.9 Dorsalgia, unspecified; G89.29 Other chronic pain; Z79.899 Other long term (current) drug therapy
CPT/HCPCS: 36415; 71046; 71046-26; 74176; 74176-26; 80048; 80053; 81003; 82009; 82803; 82962; 83735; 84100; 85025; 87804; 96361; 96365; 96366; 96375; 96376; 99285-25; A9270-GY; C9113; J1630; J1644; J1815-GY; J2405; J2550; J2765; J3475; J3480; J3490; J7030; J7050; U0002

== ENCOUNTER 2020-09-01 21:07 | Emergency (ER) | payer BC, OTHER ==
[2020-09-01] MEDS ORDERED: Sodium Chloride 0.9% 2.5 ML Syringe FLUSH PRN (21:24)
[2020-09-01] MEDS ORDERED: Ondansetron 4 MG/2 ML SDV IVPUSH ONE (21:24)
[2020-09-01] MEDS ORDERED: Sodium Chloride 0.9% 10 ML Syringe FLUSH PRN (21:24)
[2020-09-01] MEDS ORDERED: Sodium Chloride 0.9% 1,000 ML IV ONE ×2 (21:24→21:25)
[2020-09-01] MEDS ORDERED: diphenhydrAMINE 50 MG/ML SDV IVPUSH ONE (21:25)
[2020-09-01] MEDS ORDERED: Haloperidol Lactate 5 MG/ML SDV IM ONE (21:25)
[2020-09-01] MEDS ORDERED: LORazepam 2 MG/ML SDV IVPUSH ONE (21:28)
--- NOTE | 2020-09-01 21:38 | EDM.PDOC ---
ED HPI GENERAL MEDICAL PROBLEM - General Chief Complaint: Diabetic Complaint Stated Complaint: VOMITING Time Seen by Provider: 09/01/20 21:18 - History of Present Illness INITIAL COMMENTS - FREE TEXT/NARRATIVE: HISTORY AND PHYSICAL: History of present illness: Is a 35-year-old gentleman with a history significant for diabetes and DKA who presents ER today feeling like he is currently back in DKA. Patient reports over the last 1 to 2 days has had increased nausea and vomiting. Patient reports his blood sugars been out of control. Patient reports that he has been following his blood sugar closely and try to make sure that he is maintaining a greater than 200. Patient reports that he was recently admitted to the hospital secondary to diabetic gastroparesis and persistent vomiting however he reports that he had to be discharged early so that he can go home and smoke cannabis as that is what usually helps his symptoms. Patient reports he does smoke cannabis earlier today prior to arrival. Patient denies any recent fevers, shakes, chills. Patient denies any dysuria, frequency, urgency. Patient reports he has diffuse abdominal discomfort. Patient denies any hematemesis or coffee-ground emesis. Patient has any melena or bright red blood per rectum. Patient denies any hematuria. Patient reports he has a history significant for diabetes, DKA, diabetic gastroparesis, hepatitis B, recently diagnosed with coronavirus in March, currently utilizes an insulin pump and reports that his insulin pump has today but believes that it is still dispensing insulin. Patient denies any abdominal or chest surgeries. Patient has no known drug allergies. Patient denies any alcohol use, admits to cannabis use for his symptoms. Review of systems: As per history of present illness and below otherwise all systems reviewed and negative. Past medical history: As per history of present illness and as reviewed below otherwise noncontributory. Surgical history: As per history of present illness and as reviewed below otherwise noncontributory. Social history: No reported history of drug or alcohol abuse. Family history: As per history of present illness and as reviewed below otherwise noncontributory. Physical exam: Constitutional: Patient is oriented to person, place, and time. Appears well- developed and well-nourished. No distress. HEENT: Moist mucous membranes Head: Normocephalic and atraumatic Eyes: Right eye exhibits no discharge. Left eye exhibits no discharge. No scleral icterus Neck: Normal range of motion. No tracheal deviation present. Cardiovascular: Normal rate and regular rhythm. Pulmonary: Effort normal, no respiratory distress. Musculoskeletal: Normal range of motion Neurologic: Alert and oriented to person, place and time. Skin: [place], warm and dry. Psychiatric: Normal mood and affect. Behavior is normal. Judgment and thought content normal. Nursing note and vital signs have been reviewed Abd: Soft, nondistended, no rebound/guarding, no psoas or obturator signs, no tenderness at Mcberney's point, no Tong's sign. Pt does not present with an exam that would be consistent with an acute surgical abdomen at this time, mild diffuse tenderness to palpation Diagnostics: CBC, CMP, EKG, serum ketones, VBG, urinalysis Therapeutics: NSS x2 L, Zofran, Haldol, Benadryl, Ativan Assessment and plan: Is a 35-year-old gentleman who presents ER today with likely cyclical vomiting syndrome versus vomiting from diabetic gastroparesis. Patient in the ED is having episodes of extremely loud violent retching retching however no emesis is occurring during these episodes. Patient be given IV fluids, patient will be evaluated for DKA. Patient will be given Haldol, Ativan, Benadryl to treat for likely cyclical vomiting syndrome secondary to cannabis use. I have discussed with the patient and reports that he has had this discussion in the past with her physicians the concern regarding cannabis use and cyclical vomiting syndrome. Patient is not amenable to stopping cannabis at this time. 11:20 PM: Patient been resting comfortably in bed since medication ministration. Patient has no further episodes of retching or emesis while in the ED after medication. Patient's labs are not consistent with diabetic ketoacidosis. Patient has no anion gap, no acidosis. Patient's venous blood gas does not reveal any acidosis or acidemia. Patient will be stable for discharge. Patient likely has cyclical vomiting syndrome secondary to cannabis use with exacerbation of his diabetic gastroparesis. Reassessment at the time of disposition demonstrates that the patient is in no acute distress. The patient has remained stable throughout the entire ED visit and is without objective evidence for acute process requiring urgent intervention or hospitalization. The patient is stable for discharge, counseling is provided as documented above, discussed symptomatic treatment and specific conditions for return. I have spoken with the patient/caregiver and discussed todays findings, in addition to providing specific details for the plan of care. Questions are answered and there is agreement with the plan. Definitive disposition and diagnosis as appropriate pending reevaluation and review of above. Abdomen Pain Score (Numeric/FACES): 5 - Related Data Allergies Allergy/AdvReac Type Severity Reaction Status Date / Time No Known Allergies Allergy Verified 09/01/20 21:11 Home Meds: Home Meds ALPRAZolam [Alprazolam ER] 0.5 mg PO BID PRN 11/24/19 [History] Cannabidiol (Cbd) Extract [Cannabis (Medical)] 1 dose PO BID 11/24/19 [History] Cimetidine [Acid Rotor Casting Machine Setup Operator] 600 mg PO ASDIRECTED PRN 11/24/19 [History] Glucagon,Human Recombinant [Glucagon Emergency Kit] 1 injection SUBCUT ASDIRECTED PRN 11/24/19 [History] Insulin Aspart [NovoLOG] 1 injection SUBCUT ASDIRECTED 11/24/19 [History] atorvaSTATin Calcium [Atorvastatin Calcium] 10 mg PO DAILY 11/24/19 [History] lisinopriL [Lisinopril] 5 mg PO DAILY 11/24/19 [History] Ondansetron [Zofran Odt] 8 mg PO Q6H PRN #20 tab.rapdis 04/19/20 [Rx] Past Medical History HEENT History: Reports: Other (See Below) Other HEENT History: wears glasses, has dental implants Cardiovascular History: Reports: High Cholesterol Other Cardiovascular History: tales lisinopril to protect kidneys duet to diabetes Respiratory History: Reports: None Gastrointestinal History: Reports: Colon Polyp, GERD, Hepatitis Other Gastrointestinal History: hepatitis in the past-last test was negative Genitourinary History: Reports: None Musculoskeletal History: Reports: Back Pain, Chronic, Fracture Other Musculoskeletal History: states has had multiple fractures Neurological History: Reports: Concussion, Headaches, Chronic, Migraines, Neuropathy, Diabetic Psychiatric History: Reports: Anxiety, Depression Endocrine/Metabolic History: Reports: Diabetes, Type I Insulin Pump Model and Shoemaker Custom: not use for 2days Hematologic History: Reports: None Immunologic History: Reports: None Oncologic (Cancer) History: Reports: None Dermatologic History: Reports: None - Infectious Disease History Infectious Disease History: Reports: Chicken Pox, Measles, Mumps - Past Surgical History Head Surgeries/Procedures: Reports: None HEENT Surgical History: Reports: None Cardiovascular Surgical History: Reports: None Respiratory Surgical History: Reports: None GI Surgical History: Reports: Colonoscopy Male Surgical History: Reports: None Endocrine Surgical History: Reports: None Neurological Surgical History: Reports: None Musculoskeletal Surgical History: Reports: None Oncologic Surgical History: Reports: None Dermatological Surgical History: Reports: None Social & Family History - Family History Family Medical History: Noncontributory - Tobacco Use Tobacco Use Status *Q: Never Tobacco User - Caffeine Use Caffeine Use: Reports: Energy Drinks - Recreational Drug Use Recreational Drug Use: No ED ROS GENERAL - Review of Systems Review Of Systems: See Below ED EXAM GENERAL NO PERIP PULSE - Physical Exam Exam: See Below #1 Interpretation EKG Interpretation Comments: EKG: As interpreted by ER physician: Robert: Nonspecific ST-T wave abnormalities Normal axis No evidence of ST elevation [place] Normal sinus rhythm heart rate of 70 Course - Vital Signs Last Recorded V/S: Last Vital Signs Temp 97.8 F 09/01/20 21:12 Pulse 63 09/01/20 21:12 Resp 20 09/01/20 21:12 BP 152/85 H 09/01/20 21:12 Pulse Ox 99 09/01/20 21:12 - Orders/Labs/Meds Orders: Active Orders 24 hr Category Date Time Status Blood Glucose Check, Bedside [RC] ONETIME Care 09/01/20 21:24 Active EKG Documentation Completion [RC] AM Care 09/01/20 21:25 Active BLOOD GAS ARTERIAL [BG] Stat Lab 09/01/20 21:25 Ordered UA RFX TERE AND CULT IF INDIC [URIN] Stat Lab 09/01/20 21:24 Ordered Sodium Chloride 0.9% [Saline Flush] Med 09/01/20 21:24 Active 10 ml FLUSH ASDIRECTED PRN Sodium Chloride 0.9% [Saline Flush] Med 09/01/20 21:24 Active 2.5 ml FLUSH ASDIRECTED PRN Saline Lock Insert [OM.PC] Stat Oth 09/01/20 21:24 Ordered Medication Orders Sodium Chloride (Saline Flush) 10 ml FLUSH ASDIRECTED PRN PRN Reason: Keep Vein Open Last Admin: 09/01/20 21:40 Dose: 10 ml Documented by: EULALIA Sodium Chloride (Saline Flush) 2.5 ml FLUSH ASDIRECTED PRN PRN Reason: Keep Vein Open Last Admin: 09/01/20 21:39 Dose: 2.5 ml Documented by: [email or web address] Labs: Laboratory Tests 09/01/20 09/01/20 09/01/20 Range/Units 21:20 21:20 21:20 WBC 13.24 H (4.0-11.0) K/uL RBC 5.30 (4.50-5.90) M/uL Hgb 16.0 (13.0-17.0) g/dL Hct 46.0 (38.0-50.0) % MCV 86.8 (80.0-98.0) fL MCH 30.2 (27.0-32.0) pg MCHC 34.8 (31.0-37.0) g/dL RDW Std Deviation 39.6 (28.0-62.0) fl RDW Coeff of Bryce 13 (11.0-15.0) % Plt Count 237 (150-400) K/uL MPV 10.20 (7.40-12.00) fL Neut % (Auto) 85.0 H (48.0-80.0) % Lymph % (Auto) 9.0 L (16.0-40.0) % [place] % (Auto) 5.8 (0.0-15.0) % Eos % (Auto) 0.0 (0.0-7.0) % Baso % (Auto) 0.2 (0.0-1.5) % Neut # (Auto) 11.3 H (1.4-5.7) K/uL Lymph # (Auto) 1.2 (0.6-2.4) K/uL [place] # (Auto) 0.8 (0.0-0.8) K/uL Eos # (Auto) 0.0 (0.0-0.7) K/uL Baso # (Auto) 0.0 (0.0-0.1) K/uL Nucleated RBC % 0.0 /100WBC Nucleated RBCs # 0 K/uL VBG pH (7.31-7.41) VBG pCO2 (35-45) mmHG VBG pO2 (30-40) mmHG VBG HCO3 (22-30) mEq/L VBG Total CO2 (41-51) mmol/L VBG Base Excess (-3.0-3.0) Sodium 138 (136-148) mmol/L Potassium 3.4 L (3.5-5.1) mmol/L Chloride 98 (98-107) mmol/L Carbon Dioxide 23.3 (21.0-32.0) mmol/L BUN 25 H (7.0-18.0) mg/dL Creatinine 1.5 H (0.8-1.3) mg/dL Est Cr Clr Drug Dosing 64.88 mL/min Estimated GFR (MDRD) 53.6 ml/min Glucose 333 H (74-106) mg/dL Calcium 9.1 (8.5-10.1) mg/dL Total Bilirubin 1.4 H (0.2-1.0) mg/dL AST 12 L (15-37) IU/L ALT 35 (14-63) IU/L Alkaline Phosphatase 92 (46-116) U/L Total Protein 7.5 (6.4-8.2) g/dL Albumin 4.3 (3.4-5.0) g/dL Globulin 3.2 (2.6-4.0) g/dL Albumin/Globulin Ratio 1.3 (0.9-1.6) Ketones NEGATIVE (NEG) 09/01/20 Range/Units 21:20 WBC (4.0-11.0) K/uL RBC (4.50-5.90) M/uL Hgb (13.0-17.0) g/dL Hct (38.0-50.0) % MCV (80.0-98.0) fL MCH (27.0-32.0) pg MCHC (31.0-37.0) g/dL RDW Std Deviation (28.0-62.0) fl RDW Coeff of Bryce (11.0-15.0) % Plt Count (150-400) K/uL MPV (7.40-12.00) fL Neut % (Auto) (48.0-80.0) % Lymph % (Auto) (16.0-40.0) % [place] % (Auto) (0.0-15.0) % Eos % (Auto) (0.0-7.0) % Baso % (Auto) (0.0-1.5) % Neut # (Auto) (1.4-5.7) K/uL Lymph # (Auto) (0.6-2.4) K/uL [place] # (Auto) (0.0-0.8) K/uL Eos # (Auto) (0.0-0.7) K/uL Baso # (Auto) (0.0-0.1) K/uL Nucleated RBC % /100WBC Nucleated RBCs # K/uL VBG pH 7.58 H (7.31-7.41) VBG pCO2 26 L (35-45) mmHG VBG pO2 48 H (30-40) mmHG VBG HCO3 24 (22-30) mEq/L VBG Total CO2 20 L (41-51) mmol/L VBG Base Excess 3.8 H (-3.0-3.0) Sodium (136-148) mmol/L Potassium (3.5-5.1) mmol/L Chloride (98-107) mmol/L Carbon Dioxide (21.0-32.0) mmol/L BUN (7.0-18.0) mg/dL Creatinine (0.8-1.3) mg/dL Est Cr Clr Drug Dosing mL/min Estimated GFR (MDRD) ml/min Glucose (74-106) mg/dL Calcium (8.5-10.1) mg/dL Total Bilirubin (0.2-1.0) mg/dL AST (15-37) IU/L ALT (14-63) IU/L Alkaline Phosphatase (46-116) U/L Total Protein (6.4-8.2) g/dL Albumin (3.4-5.0) g/dL Globulin (2.6-4.0) g/dL Albumin/Globulin Ratio (0.9-1.6) Ketones (NEG) Meds: Medications Generic Name Dose Route Start Last Admin Trade Name Freq PRN Reason Stop Dose Admin Sodium Chloride 10 ml 09/01/20 21:24 09/01/20 21:40 Saline Flush FLUSH 10 ml ASDIRECTED PRN Administration Keep Vein Open Sodium Chloride 2.5 ml 09/01/20 21:24 09/01/20 21:39 Saline Flush FLUSH 2.5 ml ASDIRECTED PRN Administration Keep Vein Open Discontinued Medications Generic Name Dose Route Start Last Admin Trade Name Freq PRN Reason Stop Dose Admin Diphenhydramine HCl 50 mg 09/01/20 21:25 09/01/20 21:39 Benadryl IVPUSH 09/01/20 21:26 50 mg ONETIME ONE Administration Haloperidol Lactate 5 mg 09/01/20 21:25 09/01/20 21:39 Haldol IM 09/01/20 21:26 5 mg ONETIME ONE Administration Sodium Chloride 1,000 mls @ 999 mls/hr 09/01/20 21:24 09/01/20 21:38 Normal Saline IV 09/01/20 22:24 999 mls/hr BOLUS ONE Administration Sodium Chloride 1,000 mls @ 999 mls/hr 09/01/20 21:25 09/01/20 21:38 Normal Saline IV 09/01/20 22:25 999 mls/hr .Bolus ONE Administration Lorazepam 1 mg 09/01/20 21:28 09/01/20 21:39 Ativan IVPUSH 09/01/20 21:29 1 mg ONETIME ONE Administration Ondansetron HCl 4 mg 09/01/20 21:24 09/01/20 21:39 Zofran IVPUSH 09/01/20 21:25 4 mg ONETIME ONE Administration Departure - Departure Time of Disposition: 23:22 Disposition: Home, Self-Care 01 Condition: Good Clinical Impression: Hyperglycemia, Diabetic gastroparesis, Cyclical vomiting syndrome, Cannabis abuse, Cannabinoid hyperemesis syndrome - Discharge Information Instructions: Nausea and Vomiting, Adult, Hyperglycemia, [id number], Cyclic Vomiting Syndrome, Adult, Cannabinoid Hyperemesis Syndrome, Gastroparesis Referrals: PCP,None [Primary Care Provider] - Forms: ED Department Discharge Additional Instructions: Please stop using all forms of cannabis as this might be contributing to your cyclical vomiting syndrome. Continue with your usual diabetes management. Make an appointment to see your doctor on Thursday for reevaluation. The following information is given to patients seen in the emergency department who are being discharged to home. This information is to outline your options for follow-up care. We provide all patients seen in our emergency department with a follow-up referral. The need for follow-up, as well as the timing and circumstances, are variable depending upon the specifics of your emergency department visit. If you don't have a primary care physician on staff, we will provide you with a referral. We always advise you to contact your personal physician following an emergency department visit to inform them of the circumstance of the visit and for follow-up with them and/or the need for any referrals to a consulting specialist. The emergency department will also refer you to a specialist when appropriate. This referral assures that you have the opportunity for follow-up care with a specialist. All of these measure are taken in an effort to provide you with optimal care, which includes your follow-up. Under all circumstances we always encourage you to contact your private physician who remains a resource for coordinating your care. When calling for follow-up care, please make the office aware that this follow-up is from your recent emergency room visit. If for any reason you are refused follow-up, please contact the [facility] Emergency Department at and asked to speak to the emergency department charge nurse. [facility] [address] [place] [id number] [place] [address] Sepsis Event Note (ED) - Evaluation Sepsis Screening Result: No Definite Risk - Focused Exam Vital Signs: Vital Signs Temp Pulse Resp BP Pulse Ox 09/01/20 21:12 97.8 F 63 20 152/85 H 99 - My Orders Last 24 Hours: My Active Orders 09/01/20 21:24 Blood Glucose Check, Bedside [RC] ONETIME UA RFX TERE AND CULT IF INDIC [URIN] Stat Sodium Chloride 0.9% [Saline Flush] 10 ml FLUSH ASDIRECTED PRN Sodium Chloride 0.9% [Saline Flush] 2.5 ml FLUSH ASDIRECTED PRN Saline Lock Insert [OM.PC] Stat 09/01/20 21:25 EKG Documentation Completion [RC] AM BLOOD GAS ARTERIAL [BG] Stat - Assessment/Plan Last 24 Hours: My Active Orders 09/01/20 21:24 Blood Glucose Check, Bedside [RC] ONETIME UA RFX TERE AND CULT IF INDIC [URIN] Stat Sodium Chloride 0.9% [Saline Flush] 10 ml FLUSH ASDIRECTED PRN Sodium Chloride 0.9% [Saline Flush] 2.5 ml FLUSH ASDIRECTED PRN Saline Lock Insert [OM.PC] Stat 09/01/20 21:25 EKG Documentation Completion [RC] AM BLOOD GAS ARTERIAL [BG] Stat
[2020-09-01 21:46] LABS: CARBON DIOXIDE,CO2 23.3 mmol/L (21.0-32.0); POTASSIUM,K 3.4 mmol/L (3.5-5.1)
[2020-09-01 23:26] VITALS: BP 104/83
[2020-09-02 00:42] VITALS: PULSE 63
== END 2020-09-02 01:11 | disposition home or self-care (01) ==
LOC: MW.ED 21:07
DX: R11.2 Nausea with vomiting, unspecified (principal); F12.10 Cannabis abuse, uncomplicated; E10.43 Type 1 diabetes mellitus with diabetic autonomic (poly)neuropathy; E10.65 Type 1 diabetes mellitus with hyperglycemia; K31.84 Gastroparesis; E78.00 Pure hypercholesterolemia, unspecified; Z79.899 Other long term (current) drug therapy
CPT/HCPCS: 36415; 80053; 82009; 82803; 85025; 93005; 96372; 96374; 96375; 99285; J1200; J1630; J2060; J2405; J7030

== ENCOUNTER 2023-05-07 09:39 | Observation (INO) | payer BC, OTHER ==
[2023-05-07] MEDS ORDERED: Ondansetron 4 MG/2 ML SDV IVPUSH ONE (09:51)
[2023-05-07] MEDS ORDERED: Sodium Chloride 0.9% 10 ML Syringe FLUSH PRN ×2 (09:51→15:56)
[2023-05-07] MEDS ORDERED: Sodium Chloride 0.9% 2.5 ML Syringe FLUSH PRN ×2 (09:51→15:56)
[2023-05-07] MEDS ORDERED: Sodium Chloride 0.9% 1,000 ML IV ONE (09:51)
[2023-05-07 10:19] LABS: BASE EXCESS VENOUS 5.9 (-2.0-3.0); PH,VENOUS 7.49 (7.31-7.41)
[2023-05-07] MEDS ORDERED: droPERidol 5 MG/2 ML SDV IVPUSH STA (10:24)
[2023-05-07 10:32] LABS: BASOPHILS PERCENT AUTO 0.2 % (0.0-1.5); HEMATOCRIT 49.2 % (38.0-50.0); HEMOGLOBIN 16.9 g/dL (13.0-17.0); LYMPHOCYTES ABSOLUTE AUTO 0.9 K/uL (0.6-2.4); LYMPHOCYTES PERCENT AUTO 7.1 % (16.0-40.0); MEAN CORPUSCULAR HEMOGLOBIN 29.8 pg (27.0-32.0); MEAN CORPUSCULAR HGB CONC 34.3 g/dL (31.0-37.0); MEAN CORPUSCULAR VOLUME 86.8 fL (80.0-98.0); MONOCYTES ABSOLUTE AUTO 0.2 K/uL (0.0-0.8); MONOCYTES PERCENT AUTO 1.9 % (0.0-15.0); NEUTROPHILS ABSOLUTE AUTO 11.5 K/uL (1.4-5.7); NEUTROPHILS PERCENT AUTO 90.8 % (48.0-80.0); NRBC ABSOLUTE 0 K/uL; PLATELET COUNT,PLT 306 K/uL (150-400); RED BLOOD CELL COUNT 5.67 M/uL (4.50-5.90); WHITE BLOOD CELL COUNT,WBC 12.62 K/uL (4.0-11.0)
[2023-05-07 11:00] LABS: A/G RATIO 1.2 (0.9-1.6); ALBUMIN 4.4 g/dL (3.4-5.0); BILIRUBIN TOTAL 0.7 mg/dL (0.2-1.0); CARBON DIOXIDE,CO2 27.5 mmol/L (21.0-32.0); CREATININE 1.3 mg/dL (0.8-1.3); EST CRCL DRUG DOSING (CG) 73.44 mL/min; POTASSIUM,K 3.9 mmol/L (3.5-5.1); PROTEIN TOTAL,TP 8.2 g/dL (6.4-8.2)
[2023-05-07] MEDS ORDERED: Sodium Chloride 0.9% 1,000 ML IV STA ×2 (11:05→13:38)
[2023-05-07] MEDS ORDERED: Iopamidol 755 Mg/ML 100 ML Bottle IVPUSH ONE (11:36)
[2023-05-07 11:42] LABS: APPEARANCE,URINE CLEAR; BILIRUBIN,URINE NEGATIVE (NEGATIVE); COLOR,URINE YELLOW; GLUCOSE,URINE 250 mg/dL (NEGATIVE); KETONES,URINE 40 mg/dL (NEGATIVE); LEUKOCYTE ESTERASE,URINE NEGATIVE (NEGATIVE); NITRITE,URINE NEGATIVE (NEGATIVE); OCCULT BLOOD,URINE NEGATIVE (NEGATIVE); PROTEIN,URINE TRACE mg/dL (NEGATIVE); UROBILINOGEN,URINE 0.2 EU/dL (<2.0)
[2023-05-07 11:52] LABS: AMPHETAMINES SCREEN, URINE PRESUMPTIVE POSITIVE (CUTOFF=500); BARBITURATE SCREEN,URINE NEGATIVE (CUTOFF=200); BENZODIAZEPINES SCREEN,URINE NEGATIVE (CUTOFF=150); BUPRENORPHINE SCREEN,URINE NEGATIVE (CUTOFF=10); METHADONE SCREEN, URINE NEGATIVE (CUTOFF=200); METHAMPHETAMINES SCREEN, URINE NEGATIVE (CUTOFF=500); OXYCODONE SCREEN,URINE NEGATIVE (CUT0FF=100); PCP SCREEN,URINE NEGATIVE (CUTOFF=25); PROPOXYPHENE SCREEN,URINE NEGATIVE (CUTOFF=300); THC SCREEN,URINE 20 NG/ML PRESUMPTIVE POSITIVE (CUTOFF=50)
[2023-05-07 11:56] LABS: EPITHELIAL CELLS,URINE NOT SEEN (NONE-FEW); RBC,URINE NONE SEEN (0-2/HPF); WBC,URINE NONE SEEN (0-5/HPF)
[2023-05-07 11:57] LABS: AMORPHOUS SEDIMENT,URINE FEW (NEGATIVE); BACTERIA,URINE RARE (NEGATIVE); MUCUS,URINE FEW (NONE-MOD)
[2023-05-07] MEDS ORDERED: Ondansetron 4 MG/2 ML SDV IVPUSH PRN (16:00)
[2023-05-07] MEDS ORDERED: Acetaminophen 325 MG Tab PO PRN (16:00)
[2023-05-07] MEDS ORDERED: Promethazine 25 MG/ML SDV IM PRN (16:00)
[2023-05-07] MEDS ORDERED: Pantoprazole 40 MG in Sodium Chloride 0.9% 10 ML IVPUSH SCH (16:00)
[2023-05-07] MEDS ORDERED: 50% Dextrose in Water 50 ML Syringe IVPUSH PRN (16:05)
[2023-05-07] MEDS ORDERED: Glucagon,Human Recombinant 1 MG Vial IM PRN (16:05)
[2023-05-07] MEDS: Lactated Ringers 1,000 ML IV SCH ×2 (16:34→23:28)
[2023-05-07] MEDS: Insulin Aspart 100 Units/ML 3 ML Pen SUBCUT SCH (16:41)
[2023-05-07] MEDS ORDERED: Albuterol/Ipratropium 3.0-0.5 MG/3 ML Neb Soln NEB PRN (18:00)
[2023-05-07 19:01] LABS: CALCIUM 8.8 mg/dL (8.5-10.1); CARBON DIOXIDE,CO2 25.7 mmol/L (21.0-32.0); EST CRCL DRUG DOSING (CG) 95.48 mL/min; POTASSIUM,K 3.5 mmol/L (3.5-5.1)
[2023-05-08 05:57] LABS: HEMATOCRIT 41.8 % (38.0-50.0); MEAN CORPUSCULAR HEMOGLOBIN 29.2 pg (27.0-32.0); MEAN CORPUSCULAR HGB CONC 33.5 g/dL (31.0-37.0); MEAN CORPUSCULAR VOLUME 87.3 fL (80.0-98.0); MEAN PLATELET VOLUME 9.3 fL (7.40-12.00); RED BLOOD CELL COUNT 4.79 M/uL (4.50-5.90); WHITE BLOOD CELL COUNT,WBC 10.96 K/uL (4.0-11.0)
[2023-05-08] MEDS: Lactated Ringers 1,000 ML IV SCH (06:32)
[2023-05-08 06:33] LABS: A/G RATIO 1.1 (0.9-1.6); ALBUMIN 3.2 g/dL (3.4-5.0); BILIRUBIN TOTAL 0.8 mg/dL (0.2-1.0); CARBON DIOXIDE,CO2 26.1 mmol/L (21.0-32.0); CREATININE 0.9 mg/dL (0.8-1.3); EST CRCL DRUG DOSING (CG) 106.09 mL/min; MAGNESIUM 1.7 mg/dL (1.8-2.4); PHOSPHORUS 3.4 mg/dL (2.6-4.7); POTASSIUM,K 3.5 mmol/L (3.5-5.1); PROTEIN TOTAL,TP 6.2 g/dL (6.4-8.2)
[2023-05-08 06:38] LABS: CALCIUM 8.7 mg/dL (8.5-10.1)
[2023-05-08] MEDS: Insulin Aspart 100 Units/ML 3 ML Pen SUBCUT SCH ×2 (08:54→12:23)
[2023-05-08] MEDS ORDERED: Potassium Chloride 20 MEQ Tab.ER PO ONE (10:30)
[2023-05-08] MEDS ORDERED: Magnesium Oxide 400 MG Tab PO ONE (10:30)
[2023-05-08 12:23] VITALS: BP 130/84; PULSE 88
== END 2023-05-08 12:15 | disposition home or self-care (01) ==
LOC: MW.ED 09:39 → MW.MS 14:04
PROVIDERS: ADMIT Family Medicine; ATTEND Family Medicine
DX: R11.2 Nausea with vomiting, unspecified (principal); E86.0 Dehydration; E10.43 Type 1 diabetes mellitus with diabetic autonomic (poly)neuropathy; K31.84 Gastroparesis; E78.00 Pure hypercholesterolemia, unspecified; K21.9 Gastro-esophageal reflux disease without esophagitis; M54.9 Dorsalgia, unspecified; G89.29 Other chronic pain; F90.9 Attention-deficit hyperactivity disorder, unspecified type; F41.9 Anxiety disorder, unspecified; F32.A Depression, unspecified; Z79.4 Long term (current) use of insulin; Z79.899 Other long term (current) drug therapy
CPT/HCPCS: 36415; 74177; 80048; 80053; 80305; 81001; 82009; 82803; 82947; 83605; 83690; 83735; 84100; 85025; 85027; 93005; 96361; 96374; 96375; 99285; A9270; C9113; G0378; J1790; J2405; J3490; J7030; J7120; Q9967; 93010